=== PATIENT | female | born 1990 | race Caucasian/White ===

== ENCOUNTER 2016-04-27 19:41 | Outpatient (CLI) | payer MEDICAID ==
--- NOTE | 2016-04-27 20:01 | L&D Flow Sheet ---
LD Flowsheet Datetime Report Generated by CPN: 04/27/2016 20:00 Datetime: 04/27/2016 19:59 Vital Signs NBP Sys/Marly/Mean (mmHg): 138 (QS system process) : 86 (QS system process) : 105 (QS system process) Pulse: 83 (QS system process)
[2016-04-27 21:23] LABS: PARTIAL THROMBOPLASTIN TIME 30.9 SEC (23.5-35.8); PROTHROMBIN TIME 12.4 SEC (11.4-15.4)
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
[2016-04-27 22:12] LABS: APPEARANCE,URINE CLEAR; BILIRUBIN,URINE NEGATIVE (NEGATIVE); GLUCOSE, URINE NEGATIVE (NEGATIVE); KETONES,URINE NEGATIVE (NEGATIVE); LEUKOCYTE ESTERASE,URINE NEGATIVE (NEGATIVE); NITRITE,URINE NEGATIVE (NEGATIVE); PROTEIN,URINE NEGATIVE (NEGATIVE); URINE SPECIFIC GRAVITY 1.006; UROBILINOGEN,URINE NEGATIVE mg/dL (<2.0)
[2016-04-27 22:34] LABS: URINE BARBITURATES SCREEN NEGATIVE; URINE METHADONE SCREEN NEGATIVE; URINE OPIATES LOW NEGATIVE; URINE PHENCYCLIDINE SCREEN NEGATIVE
[2016-04-27 23:47] LABS: TOTAL RBC COUNT 2019; VOL OF FETOMATERNAL HEMORRHAGE 0 ML (0)
[2016-04-27 23:48] LABS: TYPE IN FILE? TYPE IN FILE
--- NOTE | 2016-04-28 04:46 | L&D General Admission ---
General Admit Datetime Report Generated by CPN: 04/28/2016 04:45 INFORMATION Patient Age: 25 (03/02/2016 19:34:QS system process) EDC: 08/03/2016 00:00 (04/27/2016 19:44:Cher Lattibeaudeir, RN) Para: 1 (04/28/2016 00:00:Noris Zaragoza) Baby, Number in Womb: 1 (04/28/2016 00:00:Noris Zaragoza) CARE Primary Prescriptionist: [facility] (04/27/2016 19:44:Noris Zaragoza) Height (in): 69 (04/27/2016 19:57:QS system process) Height (in): 65 (03/02/2016 19:34:QS system process) ALLERGIES Medication Allergies: codeine phosphate (08/06/2015); dextromethorphan HBr (08/06/2015); phenylpropanolamine HCl (08/06/2015); pseudoephedrine HCl (08/06/2015); brompheniramine maleate (08/06/2015); guaifenesin (08/06/2015) (03/02/2016 19:34:QS system process) Food Allergies: red dyes (04/27/2016 19:44:Noris Zaragoza) Environmental Allergies: seasonal allergies (04/27/2016 19:44:Noris Zaragoza) COMMUNICATION Primary Language: Panamanian (04/27/2016 19:44:Noris Zaragoza) Medical Tx Preferred Language: Panamanian (04/27/2016 19:44:Noris Zaragoza) DEMOGRAPHICS Address: [address] [place] [id number] (03/02/2016 19:34:QS system process) Zipcode: [address] (03/02/2016 19:34:QS system process) Home (03/02/2016 19:34:QS system process) SSN: [id number] (03/02/2016 19:34:QS system process) Next of Kin Name: MARLENA GOYAL (04/27/2016 19:41:QS system process) Next of Kin Name: MOE DIEHL (03/02/2016 19:34:QS system process) Next of Kin (04/27/2016 19:41:QS system process) Next of Kin (03/02/2016 19:34:QS system process) Next of Kin Relationship: SPO (04/27/2016 19:41:QS system process) Next of Kin Relationship: [place] (03/02/2016 19:34:QS system process) Date of : 1990 (03/02/2016 19:34:QS system process) Marital Status: (03/02/2016 19:34:QS system process) Sex: Female (03/02/2016 19:34:QS system process) Race: (03/02/2016 19:34:QS system process) Ethnicity: Non- or (03/02/2016 19:34:QS system process) Tenriism: None (03/02/2016 19:34:QS system process) DRUG AND ALCOHOL USE Alcohol: No (04/27/2016 19:44:Noris Zaragoza) Cigarettes: Never Smoker. [id number] (04/27/2016 19:44:Norsi Zaragoza) Marijuana: No (04/27/2016 19:44:Noris Zaragoza) Cocaine: No (04/27/2016 19:44:Noris Zaragoza) Other Illicit Drugs: No (04/27/2016 19:44:Noris Zaragoza) VACCINE HISTORY Influenza Vaccine: No (04/27/2016 19:44:Noris Zaragoza) Pneumococcal Vaccine: No (04/27/2016 19:44:Norsi Zaragoza) Tetanus Vaccine: No (04/27/2016 19:44:Noris Zaragoza) Tdap Vaccine: No (04/27/2016 19:44:Noris Zaragoza) Hepatitis B Vaccine: No (04/27/2016 19:44:Noris Zaragoza) Financial Service Professional: [facility] (04/27/2016 19:44:Noris Zaragoza) Feeding Preference: Both (04/27/2016 19:44:Noris Zaragoza) Circumcision: Yes (04/27/2016 19:44:Noris Zaragoza) Classes Attended: No (04/27/2016 19:44:Noris Zaragoza) Tubal Ligation: Yes (04/27/2016 19:44:Noris Zaragoza) Tubal Authorization Signed: N/A (04/27/2016 19:44:Noris Zaragoza) Consent: No (04/27/2016 19:44:Noris Zaragoza) Consent Signed: No (04/27/2016 19:44:Noris Zaragoza) Pain Management Plans: Epidural (04/27/2016 19:44:Noris Zaragoza) Plans for Labor and Delivery: None (04/27/2016 19:44:Noris Zaragoza) Support Person: Marlena (04/27/2016 19:44:Noris Zaragoza) Support Person Relationship: (04/27/2016 19:44:Noris Zaragoza) Cultural/Spritual Practice: N/A (04/27/2016 19:44:Noris Zaragoza) Spir/Cult Dietary Needs: N/A (04/27/2016 19:44:Noris Zaragoza) LIVING SITUATION/DISCHARGE PLAN Living Arrangements: House (04/27/2016 19:44:Noris Zaragoza) Adequate Access to:: Electric; Heat; Refrigeration; Plumbing/Running water; Phone; Transportation (04/27/2016 19:44:Noris Zaragoza) WIC Program: No (04/27/2016 19:44:Noris Zaragoza) Discharge Service Counselor Person: marlena- (04/27/2016 19:44:Noris Zaragoza) Person to Help after Discharge: marlena- (04/27/2016 19:44:Noris Zaragoza) Specify Current Resource Used: medicaid (04/27/2016 19:44:Noris Zaragoza) Car Seat for Discharge: Yes (04/27/2016 19:44:Noris Zaragoza) OB/PREVIOUS HISTORY Previous Procedures: Ultrasound; NST (04/27/2016 19:44:Noris Zaragoza) Current Procedures: Ultrasound (04/27/2016 19:44:Noris Zaragoza) History of Previous : No (04/27/2016 19:44:Noris Zaragoza) History of Gestational Diabetes: No (04/27/2016 19:44:Noris Zaragoza) History of PIH: No (04/27/2016 19:44:Noris Zaragoza) History of Incompetent Cervix: No (04/27/2016 19:44:Noris Zaragoza) History of Placenta Previa/Abrup: No (04/27/2016 19:44:Noris Zaragoza) History of Macrosomia: No (04/27/2016 19:44:Noris Zaragoza) History of IUGR: No (04/27/2016 19:44:Noris Zaragoza) History of Hemorrhage: No (04/27/2016 19:44:Noris Zaragoza) History of Loss/Stillborn: No (04/27/2016 19:44:Noris Zaragoza) History of : No (04/27/2016 19:44:Noris Zaragoza) History of D (Rh) Sensitization: No (04/27/2016 19:44:Noris Zaragoza) History Recurrent Loss/Stillborn: No (04/27/2016 19:44:Noris Zaragoza) History Depression/PP Depression: No (04/27/2016 19:44:Noris Zaragoza) History of Uterine Anomaly/INGRID: No (04/27/2016 19:44:Noris Zaragoza) History of Infertility: No (04/27/2016 19:44:Noris Zaragoza) History of ART Treatment: No (04/27/2016 19:44:Noris Zaragoza) History of INGRID: No (04/27/2016 19:44:Noris Zaragoza) Comments Obstetrical History: 1st - 2012-normal vaginal delivery with vacuum 2nd - current (04/27/2016 19:44:Noris Zaragoza) MEDICAL HISTORY Med Hx Diabetes: No (04/27/2016 19:44:Noris Zaragoza) Med Hx Hypertension: No (04/27/2016 19:44:Noris Zaragoza) Med Hx Heart Disease: No (04/27/2016 19:44:Noris Zaragoza) Med Hx Autoimmune Disorder: No (04/27/2016 19:44:Noris Zaragoza) Med Hx Kidney Disease/UTI: No (04/27/2016 19:44:Noris Zaragoza) Med Hx Neurologic/Epilepsy: No (04/27/2016 19:44:Noris Zaragoza) Med Hx Psychiatric Disorders: No (04/27/2016 19:44:Noris Zaragoza) Med Hx Hepatitis/Liver Disease: No (04/27/2016 19:44:Noris Zaragoza) Med Hx Varicosities/Phlebitis: No (04/27/2016 19:44:Noris Zaragoza) Med Hx Thyroid Dysfunction: No (04/27/2016 19:44:Noris Zaragoza) Med Hx Trauma/Violence: No (04/27/2016 19:44:Noris Zaragoza) Med Hx Blood Transfusion: No (04/27/2016 19:44:Noris Zaragoza) Med Hx Pulmonary (Asthma,TB): No (04/27/2016 19:44:Noris Zaragoza) Med Hx Breast: No (04/27/2016 19:44:Noris Zaragoza) Med Hx MICROBIOLOGY LABORATORY MANAGER Surgery: No (04/27/2016 19:44:Noris Zaragoza) Med Hx Hospitalization/Surgery: No (04/27/2016 19:44:Noris Zaragoza) Med Hx Anesthetic Complications: No (04/27/2016 19:44:Noris Zaragoza) Med Hx Abnormal Pap Smear: No (04/27/2016 19:44:Noris Zaragoza) Other Medical Diseases: No (04/27/2016 19:44:Noris Zaragoza) Med Hx Significant Family Hx: No (04/27/2016 19:44:Noris Zaragoza) Details of Med/Surg Hx: anxiety depression (04/27/2016 19:44:Noris Zaragoza) INFECTIOUS HISTORY Inf Hx Gonorrhea: No (04/27/2016 19:44:Noris Zaragoza) Inf Hx Chlamydia: No (04/27/2016 19:44:Noris Zaragoza) Inf Hx Syphilis: No (04/27/2016 19:44:Noris Zaragoza) Inf Hx HIV/AIDS: No (04/27/2016 19:44:Noris Zaragoza) Inf Hx Human Papilloma Virus: No (04/27/2016 19:44:Noris Zaragoza) Inf Hx Pt/Partner Genital Herpes: No (04/27/2016 19:44:Noris Zaragoza) Inf Hx Tuberculosis/Exposure: No (04/27/2016 19:44:Noris Zaragoza) Inf Hx Hepatitis B,C: No (04/27/2016 19:44:Noris Zaragoza) Inf Hx Rash or Viral Illness: No (04/27/2016 19:44:Noris Zaragoza) GENETIC HISTORY Gen Hx Age >=35 at ORVLILE: No (04/27/2016 19:44:Noris Zaragoza) Gen Hx Thalassemia: No (04/27/2016 19:44:Noris Zaragoza) Gen Hx Congenital Heart Defect: No (04/27/2016 19:44:Noris Zaragoza) Gen Hx Neural Tube Defect: No (04/27/2016 19:44:Noris Zaragoza) Gen Hx Down's Syndrome: No (04/27/2016 19:44:Noris Zaragoza) Gen Hx Devonte-Sachs: No (04/27/2016 19:44:Noris Zaragoza) Gen Hx Elijah: No (04/27/2016 19:44:Noris Zaragoza) Gen Hx Familial Dysautonomia: No (04/27/2016 19:44:Noris Zaragoza) Gen Hx Sickle Cell Disease/Trait: No (04/27/2016 19:44:Noris Zaragoza) Gen Hx Hemophilia/Blood Disorder: No (04/27/2016 19:44:Noris Zaragoza) Gen Hx Muscular Dystrophy: No (04/27/2016 19:44:Noris Zaragoza) Gen Hx Cystic Fibrosis: No (04/27/2016 19:44:Noris Zaragoza) Gen Hx Huntingtons Chorea: No (04/27/2016 19:44:Noris Zaragoza) Gen Hx Mental Retardation/Autism: No (04/27/2016 19:44:Noris Zaragoza) Gen Hx Tested for Fragile X: No (04/27/2016 19:44:Noris Zaragoza) Gen Hx Other Inher/Chromosomal: No (04/27/2016 19:44:Noris Zaragoza) Gen Hx Maternal Metabolic DO: No (04/27/2016 19:44:Noris Zaragoza) Gen Hx Pt Father or FOB Defect: No (04/27/2016 19:44:Noris Zaragoza) Gen Hx Other Genetic History: No (04/27/2016 19:44:Noris Zaragoza) Gen Hx Drugs/Meds since LMP: No (04/27/2016 19:44:Noris Zaragoza)
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
--- NOTE | 2016-04-28 04:46 | L&D Admission Assessment ---
LD ADM ASMT Datetime Report Generated by CPN: 04/28/2016 04:45 PATIENT ASSESSMENT Assessment Type: Triage (04/27/2016 20:03:Noris Zaragoza) WEIGHT Weight (lb): 266 (04/27/2016 19:57:QS system process) Weight (kg): 120.9 (04/27/2016 19:57:QS system process) BMI: 44.3 (04/27/2016 19:57:QS system process) PAIN Pain Scale: 1 (04/27/2016 23:00:Noris Zaragoza) Pain Scale: 1 (04/27/2016 21:30:Noris Zaragoza) Pain Scale: 2 (04/27/2016 20:03:Noris Zaragoza) Pain Presence: Constant (04/27/2016 23:00:Noris Zaragoza) Pain Presence: Constant (04/27/2016 21:30:Noris Zaragoza) Pain Presence: Constant (04/27/2016 20:03:Noris Zaragoza) Pain Type: Cramping (04/27/2016 23:00:Noris Zaragoza) Pain Type: Cramping (04/27/2016 21:30:Noris Zaragoza) Pain Type: Cramping (04/27/2016 20:03:Noris Zaragoza) Pain Location: Back (04/27/2016 23:00:Noris Zaragoza) Pain Location: Back (04/27/2016 21:30:Noris Zaragoza) Pain Location: Back (04/27/2016 20:03:Noris Zaragoza) Pain Goal: 0 (04/27/2016 23:00:Noris Zaragoza) Pain Goal: 0 (04/27/2016 21:30:Noris Zaragoza) Pain Goal: 0 (04/27/2016 20:03:Noris Zaragoza) Pain Related to Contraction: No (04/27/2016 20:03:Noris Zaragoza) CONTRACTIONS Frequency (min): none (04/27/2016 23:55:Noris Zaragoza) Frequency (min): none (04/27/2016 23:30:Noris Zaragoza) Frequency (min): none (04/27/2016 23:00:Noris Zaragoza) Frequency (min): none (04/27/2016 22:30:Noris Zaragoza) Frequency (min): none (04/27/2016 22:00:Noris Zaragoza) Frequency (min): none (04/27/2016 21:30:Noris Zaragoza) Frequency (min): none (04/27/2016 20:30:Noris Zaragoza) Resting Tone Marty: Relaxed (04/27/2016 23:55:Noris Zaragzoa) Resting Tone Marty: Relaxed (04/27/2016 23:30:Noris Zaragoza) Resting Tone Marty: Relaxed (04/27/2016 23:00:Noris Zaragoza) Resting Tone Marty: Relaxed (04/27/2016 22:30:Noris Zaragoza) Resting Tone Marty: Relaxed (04/27/2016 22:00:Noris Zaragoza) Resting Tone Marty: Relaxed (04/27/2016 21:30:Noris Zaragoza) Resting Tone Marty: Relaxed (04/27/2016 20:30:Noris Zaragoza) Contraction Comments: external monitor removed for discharge (04/27/2016 23:55:Noris Zaragoza) NEURO Level of Consciousness: Fully Conscious (04/27/2016 20:03:Noris Zaragoza) DTR's/Clonus: DTRs 2+; No Clonus (04/27/2016 20:03:Noris Zaragoza) Headache: Denies (04/27/2016 20:03:Noris Zaragoza) Dizziness: No (04/27/2016 20:03:Noris Zaragoza) Blurred Vision: No (04/27/2016 20:03:Noris Zaragoza) Extremity Numbness/Tingling : None (04/27/2016 20:03:Noris Zaragoza) Extremity Movement: Full Range of Motion (04/27/2016 20:03:Noris Zaragoza) CARDIOVASCULAR Heart Rhythm: Regular (04/27/2016 20:03:Noris Zaragoza) Nailbeds: [place] (04/27/2016 20:03:Noris Zaragoza) Capillary Refill: Less than 3 Seconds (04/27/2016 20:03:Noris Zaragoza) Lower Extremities Edema: Bilateral Lower Extremities (04/27/2016 20:03:Noris Zaragoza) Lower Extremities Edema Degree: 1+ (04/27/2016 20:03:Noris Zaragoza) Upper Extremities Edema: Bilateral Upper Extremities (04/27/2016 20:03:Noris Zaragoza) Upper Extremities Edema Degree: 1+ (04/27/2016 20:03:Noris Zaragoza) Facial Edema: None (04/27/2016 20:03:Noris Zaragoza) DVT RISK ASSESSMENT DVT Risk Age: Age less than 41 years (04/27/2016 20:03:Noris Zaragoza) DVT Risk BMI: BMI<31 (04/27/2016 20:03:Noris Zaragoza) DVT Risk Surgery: None Applicable (04/27/2016 20:03:Noris Zaragoza) DVT Risk Other: Women Only- or (<1 month) (04/27/2016 20:03:Noris Zaragoza) DVT Risk Total: 1 (04/27/2016 20:03:QS system process) DVT Risk Text: Low Risk (<10%) No specific measures, early ambulation (04/27/2016 20:03:QS system process) RESPIRATORY Respiratory Effort: Unlabored (04/27/2016 20:03:Noris Zaragoza) Breath Sounds, Left: Clear and Equal (04/27/2016 20:03:Noris Zaragoza) Breath Sounds, Right: Clear and Equal (04/27/2016 20:03:Noris Zaragoza) Cough Productivity: None (04/27/2016 20:03:Noris Zaragoza) GASTROINTESTINAL Nausea/Vomiting: Denies (04/27/2016 20:03:Noris Zaragoza) Bowel Sounds: Normoactive (04/27/2016 20:03:Noris Zaragoza) RUQ Epigastric Pain: Denies (04/27/2016 20:03:Noris Zaragoza) Bowel Patterns: Soft, Formed Stool (04/27/2016 20:03:Noris Zaragoza) Hemorrhoids: None (04/27/2016 20:03:Noris Zaragoza) Diet Type: Regular diet (04/27/2016 20:03:Noris Zaragoza) Last Meal: 04/27/2016 15:00 (04/27/2016 20:03:Noris Zaragoza) GENITOURINARY Bladder: Nondistended (04/27/2016 20:03:Noris Zaragoza) Frequency of Urination: No (04/27/2016 20:03:Noris Zaragoza) Urination Burning: No (04/27/2016 20:03:Noris Zaragoza) CVA Tenderness: No (04/27/2016 20:03:Noris Zaragoza) Vaginal Bleeding: None (04/27/2016 20:03:Noris Zaragoza) Vaginal Discharge Amount: None (04/27/2016 20:03:Noris Zaragoza) INTEGUMENTARY Skin Color: Normal for Race (04/27/2016 20:03:Noris Zaragoza) Skin Temperature: Warm (04/27/2016 20:03:Noris Zaragoza) Skin Moisture: Dry (04/27/2016 20:03:Noris Zaragoza) JOHN SKIN ASSESSMENT John Scale Sensory Perception: No Impairment- Responds to verbal commands. Has no sensory deficit which would limit ability to feel or voice pain or discomfort (04/27/2016 20:03:Norisaz Zaragoza) John Scale Moisture: Rarely Moist- Skin is usually dry. Linen only requires changing at routine intervals (04/27/2016 20:03:Noris Zaragoza) John Scale Activity: Walks Frequently- Walks outside the room at least twice a day and inside room at least every 2 hours during the day. (04/27/2016 20:03:[facility]) John Scale Mobility: No Limitations- Makes major and frequent changes in position without assistance (04/27/2016 20:03:Noris Zaragoza) John Scale Nutrition: Excellent- Eats most of every meal. Never refuses a meal. Usually eats a total of 4 or more servings of meat and dairy products. Occasionally eats between meals. Does not require supplementation (04/27/2016 20:03:Norisaz Zaragoza) John Scale Friction and Shear: No Apparent Problem- Moves in bed and in chair independently and has sufficient muscle strength to lift up completely during move. Maintains good position in bed or chair at all times (04/27/2016 20:03:Noris Zaragoza) John Scale Total: 23 (04/27/2016 20:03:QS system process) John Scale Risk: No Risk of Pressure Ulcer Noted at this Time (04/27/2016 20:03:QS system process) SUPPORT Family Support: Significant Other supportive, at bedside frequently (04/27/2016 20:03:Noris Zaragoza) Emotional State: Calm/Relaxed (04/27/2016 20:03:Noris Zaragoza) SAFETY Call Mcgovern Within Reach: Yes (04/27/2016 20:03:Noris Zaragoza) Side Rails Up: Yes (04/27/2016 20:03:Noris Zaragoza) Bed Wheels Locked: Yes (04/27/2016 20:03:Noris Zaragoza) Arm Bands Present: Yes (04/27/2016 20:03:Noris Zaragoza) Isolation: [place] (04/27/2016 20:03:Noris Zaragoza) FALL SCREEN Fall Risk History of Falling: (0) No (04/27/2016 20:03:Noris Zaragoza) Fall Risk Secondary Diagnosis: (0) No (04/27/2016 20:03:Noris Zaragoza) Fall Risk Ambulatory Aid: (0) None/Bedrest/Wheelchair/Nurse Assist (04/27/2016 20:03:Noris Zaragoza) Fall Risk IV Therapy: (20) Yes (04/27/2016 20:03:Noris Zaragoza) Fall Risk Gait: (0) Normal/Bedrest/Immobile (04/27/2016 20:03:Noris Zaragoza) Fall Risk Mental Status: (0) Oriented to Own Ability (04/27/2016 20:03:Noris Zaragoza) Fall Risk Score: 20 (04/27/2016 20:03:QS system process) Fall Risk Score Definition: No Risk: No action required (04/27/2016 20:03:QS system process) RECENT TRAVEL/INFECTIOUS DISEASE Recent Exp Communicable Disease: No (04/27/2016 20:03:Noris Zaragoza) Cough or Fever: No (04/27/2016 20:03:Noris Zaragoza) Foreign Travel Past 10 Days: No (04/27/2016 20:03:Noris Zaragoza) Open Wounds or Sores: No (04/27/2016 20:03:Noris Zaragoza) Prior Antibiotic Resistance Tx: No (04/27/2016 20:03:Noris Zaragoza) BABY A FHR Baseline Rate (bpm) Baby A: 160 (04/27/2016 19:58:Noris Zaragoza)
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
== END 2016-04-28 00:04 | disposition home or self-care (01) ==
LOC: LC 19:41
PROVIDERS: ATTEND Student in an Organized Health Care Education/Training Program
PROC: 4A1HXCZ Monitoring of Products of Conception, Cardiac Rate, External Approach (ICD-10-PCS; principal; 2016-04-27)
DX: Z36 Encounter for antenatal screening of mother (principal); Z3A.26 26 weeks gestation of pregnancy
CPT/HCPCS: 36415; 76815; 80307; 81001; 85460; 85610; 85730

== ENCOUNTER 2016-07-29 14:35 | Outpatient (CLI) | payer MEDICAID ==
--- NOTE | 2016-07-29 15:59 | Non Stress Test Report ---
Non Stress Test Datetime Report Generated by CPN: 07/29/2016 15:59 DEMOGRAPHIC EGA NST: 39.2 INDICATION Indication for Study: Ordered by Provider MONITORING Monitor Explained: Monitor Explained; Test Explained; Patient Verbalized Understanding Time on Monitor: 07/29/2016 14:48 Time off Monitor: 07/29/2016 15:56 NST Duration: 68 NST INTERVENTIONS NST Interventions: PO Hydration; Reposition Patient Physician Notified NST: Dr. Neilsen BABY A: [id number] BABY A Movement : Present Contraction Frequency : none FHR Baseline : 140 Accelerations : 15X15 Decelerations : None Variability : Moderate 6-25bpm NST Review: Meets Criteria for Reactive NST NST Review and Verified By : Michael Spann RN NST Results: Reactive NST REPORT Report Trigger: Send Report
== END 2016-07-29 16:00 | disposition home or self-care (01) ==
LOC: LC 14:35
PROVIDERS: ATTEND Specialist
PROC: 4A1HXCZ Monitoring of Products of Conception, Cardiac Rate, External Approach (ICD-10-PCS; principal; 2016-07-29)
DX: O47.1 False labor at or after 37 completed weeks of gestation (principal); Z3A.39 39 weeks gestation of pregnancy
CPT/HCPCS: 59025

== ENCOUNTER 2016-08-09 00:38 | Inpatient (IN) | payer MEDICAID ==
[2016-08-09 01:08] LABS: APPEARANCE,URINE CLOUDY; BILIRUBIN,URINE NEGATIVE (NEGATIVE); GLUCOSE, URINE 50 mg/dL (NEGATIVE); KETONES,URINE NEGATIVE (NEGATIVE); LEUKOCYTE ESTERASE,URINE SMALL (NEGATIVE); NITRITE,URINE NEGATIVE (NEGATIVE); PROTEIN,URINE 30 mg/dL (NEGATIVE); URINE SPECIFIC GRAVITY 1.015; UROBILINOGEN,URINE NEGATIVE mg/dL (<2.0)
[2016-08-09 01:18] LABS: AMNISURE (ROM) NEGATIVE (NEGATIVE)
[2016-08-09] MEDS ORDERED: HYDROXYZINE PAMOATE 50 MG CAPSULE PO ONE (02:13)
[2016-08-09] MEDS ORDERED: HYDROXYZINE PAMOATE 50 MG CAPSULE ONE (02:14)
[2016-08-09 02:25] LABS: URINE BARBITURATES SCREEN NEGATIVE; URINE METHADONE SCREEN NEGATIVE; URINE OPIATES LOW NEGATIVE; URINE PHENCYCLIDINE SCREEN NEGATIVE
[2016-08-09] MEDS ORDERED: OXYTOCIN/NORMAL SALINE 1,000 ML IV PRN ×2 (03:16→14:40)
[2016-08-09 03:36] LABS: ABSOLUTE LYMPHOCYTES (AUTO) 2.9 10^3/uL (0.5-4.7); ABSOLUTE NEUT (AUTO) 10.8 10^3/uL (1.7-8.2); BASOPHILS % (AUTO) 0.3 % (0-2); EOSINOPHILS % (AUTO) 0.2 % (0-6); HEMOGLOBIN 11.3 g/dL (12.0-15.5); HGB HCT DIFFERENCE -0.1; LYMPHOCYTES % (AUTO) 19.5 % (13-45); MEAN CORPUSCULAR HEMOGLOBIN 26.7 pg (27.0-33.4); MEAN CORPUSCULAR HGB CONC 33.3 g/dL (32.0-36.0); MEAN CORPUSCULAR VOLUME 80 fl (80-97); MONOCYTES % (AUTO) 6.7 % (3-13); RED BLOOD COUNT 4.23 10^6/uL (3.72-5.28); SEGMENTED NEUTROPHILS % (AUTO) 73.3 % (42-78); WHITE BLOOD COUNT 14.7 10^3/uL (4.0-10.5)
[2016-08-09] MEDS: RINGERS SOLUTION,LACTATED 1,000 ML IV PRN ×3 (07:34→12:25)
[2016-08-09] MEDS ORDERED: FENTANYL/BUPIVACAINE/NS/PF 100 ML EPI PRN (08:19)
[2016-08-09] MEDS ORDERED: BENZOIN/ALOE VERA/STORAX/TOLU TINCTURE 60 ML TP PRN (08:19)
[2016-08-09] MEDS ORDERED: BUPIVACAINE HCL 0.25 % INJ/PF (2.5 MG/1 ML) 30 ML VIAL INFIL PRN (08:19)
[2016-08-09] MEDS ORDERED: EPHEDRINE SULFATE INJ 50 MG/1 ML AMPULE IV PRN (08:19)
[2016-08-09] MEDS ORDERED: FENTANYL/BUPIVACAINE/NS/PF 200 MCG/100 ML RTUINJ EPI ONE (08:27)
[2016-08-09] MEDS ORDERED: BUPIVACAINE HCL 0.25 % INJ/PF (2.5 MG/1 ML) 30 ML VIAL ONE (08:27)
[2016-08-09] MEDS ORDERED: EPHEDRINE SULFATE INJ 50 MG/1 ML AMPULE ONE (08:27)
[2016-08-09] MEDS ORDERED: MISOPROSTOL 0.2 MG TABLET PR PRN (09:53)
[2016-08-09] MEDS ORDERED: LIDOCAINE 1% INJ-PF (10 MG/ML) 30 ML SDV ONE (14:25)
[2016-08-09] MEDS ORDERED: MISOPROSTOL 0.2 MG TABLET ONE (14:30)
[2016-08-09] MEDS ORDERED: MEASLES,MUMPS&RUBELLA VACC/PF 0.5 ML VIAL SUBCUT PRN (14:40)
[2016-08-09] MEDS ORDERED: DIPH/PERTUSS(ACELL)/TETANUS VAC/PF 0.5 ML SYR (>=10YO) IM PRN (14:40)
[2016-08-09] MEDS ORDERED: GLYCERIN/WITCH HAZEL LEAF 1 EACH MED..PAD TP PRN (14:40)
[2016-08-09] MEDS ORDERED: ACETAMINOPHEN 650 MG SUPP.RECT PR PRN (14:40)
[2016-08-09] MEDS ORDERED: ZOLPIDEM TARTRATE 5 MG TABLET PO PRN (14:40)
[2016-08-09] MEDS ORDERED: DIBUCAINE 1% OINTMENT 28 GM TP PRN (14:40)
[2016-08-09] MEDS ORDERED: PROMETHAZINE HCL 25 MG TABLET PO PRN (14:40)
[2016-08-09] MEDS ORDERED: PROMETHAZINE HCL 25 MG SUPP.RECT PR PRN (14:40)
[2016-08-09] MEDS ORDERED: ACETAMINOPHEN WITH CODEINE #3 TABLET PO PRN (14:40)
[2016-08-09] MEDS ORDERED: NA PHOS,M-B/NA PHOS,DI-BA (ADULT) 133 ML ENEMA PR PRN (14:40)
[2016-08-09] MEDS ORDERED: MAGNESIUM HYDROXIDE SUSP 30 ML UDCUP PO PRN (14:40)
[2016-08-09] MEDS ORDERED: BENZOCAINE/MENTHOL AEROSOL SPRAY 56 ML TOP PRN (14:40)
[2016-08-09] MEDS ORDERED: PROMETHAZINE HCL INJ 25 MG/1 ML VIAL IV PRN (14:40)
[2016-08-09] MEDS ORDERED: PSEUDOEPHEDRINE HCL 30 MG TABLET PO PRN (14:40)
[2016-08-09] MEDS ORDERED: DIPHENHYDRAMINE HCL 25 MG CAPSULE PO PRN (14:40)
[2016-08-09] MEDS ORDERED: IBUPROFEN 800 MG TABLET ONE (14:56)
--- NOTE | 2016-08-09 16:53 | Admission Physical ---
Datetime Report Generated by CPN: 08/09/2016 16:53 CURRENT ADMISSION Chief Complaint: Suspected Ruptured Membranes Indication for Induction: PROM Admit Plan: Admit to Unit; Initiate Labor Induction Protocol ALLERGIES Medication Allergies: Yes Medication Allergies: dextromethorphan HBr (08/06/2015); phenylpropanolamine HCl (08/06/2015); pseudoephedrine HCl (08/06/2015); brompheniramine maleate (08/06/2015); guaifenesin (08/06/2015) Medication Allergies: codeine phosphate (08/06/2015); dextromethorphan HBr (08/06/2015); phenylpropanolamine HCl (08/06/2015); pseudoephedrine HCl (08/06/2015); brompheniramine maleate (08/06/2015); guaifenesin (08/06/2015) Latex: No Latex Allergies Food Allergies: red dyes Environmental Allergies: seasonal allergies OBSTETRICAL HISTORY EDC: 08/03/2016 00:00 : 2 Para: 1 Term: 1 : 0 SAB: 0 IAB: 0 Ectopic: 0 Livin Cesareans: 0 VBACs: 0 Multiple Births: 0 Gestational Diabetes: No Rh Sensitization: No Incompetent Cervix: No INGRID: No Infertility: No ART Treatment: No Uterine Anomaly: No IUGR: No Hx Previous C/S: No Macrosomia: No Hx Loss/Stillborn: No PIH: No Hx : No Placenta Previa/Abruption: No Depression/PP Depression: No PTL/PROM: No Post Hemorrhage: No Current Procedures: Ultrasound Obstetrical History Comments: 1st - 2012-normal vaginal delivery with vacuum 2nd - current SEE RECORDS Alcohol: No Marijuana : No Cocaine: No Other Illicit Drugs: No Cigarettes: Never Smoker. [id number] MEDICAL HISTORY Diabetes: No Blood Transfusion: No Pulmonary Disease (Asthma, TB): No Breast Disease: No Hypertension: No Harvest Manager Surgery: No Heart Disease: No Hosp/Surgery: No Autoimmune Disorder: No Anesthetic Complications: No Kidney Disease: No Abnormal Pap Smear: No Neuro/Epilepsy: No Psychiatric Disorders: No Other Medical Diseases: No Hepatitis/Liver Disease: No Significant Family History: No Varicosities/Phlebitis: No Trauma/Violence : No Thyroid Dysfunction: No Medical History Comments: anxiety depression INFECTIOUS HISTORY Gonorrhea: No Genital Herpes: No Chlamydia: No Tuberculosis: No Syphilis: No Hepatitis: No HIV/AIDS Exposure: No Rash or Viral Illness: No HPV: No PHYSICAL EXAM General: Normal HEENT: Normal Neurologic: Normal Thyroid: Normal Heart: Normal Lungs: Normal Breast: Deferred Back: Normal Abdomen: Normal Genitourinary Exam: Normal Extremities: Normal DTRs: Normal Pelvic Type: Adequate Vital Signs: Reviewed VAGINAL EXAM Dilatation: 3 Effacement: 50 Station: -2 MEMBRANES Pooling: Positive Membranes: Ruptured FETUS A EGA: 40.6 Monitoring: External US FHR- Baseline: 140 Decelerations: None Presentation: Vertex PLANS FOR LABOR AND DELIVERY Labor and Delivery: None Pain Management: Epidural Feeding Preference: Both Benefit of Breast Feed Discussed: Yes Circumcision: Yes INFORMED CONSENT Signature: with User ID: [email or web address]
[2016-08-09] MEDS: FERROUS SULFATE 325 MG TABLET PO SCH (17:34)
[2016-08-09] MEDS: DOCUSATE SODIUM 100 MG CAPSULE PO SCH (17:34)
[2016-08-09] MEDS: ACETAMINOPHEN WITH CODEINE #3 TABLET PO PRN (19:51)
[2016-08-09] MEDS: IBUPROFEN 800 MG TABLET PO SCH (21:26)
[2016-08-09] MEDS: FAMOTIDINE 20 MG TABLET PO SCH (21:26)
[2016-08-09] MEDS ORDERED: SERTRALINE HCL 50 MG TABLET PO SCH (22:00)
[2016-08-10] MEDS: ACETAMINOPHEN WITH CODEINE #3 TABLET PO PRN ×3 (04:09→20:04)
[2016-08-10] MEDS: IBUPROFEN 800 MG TABLET PO SCH ×2 (05:59→21:14)
[2016-08-10 07:49] LABS: HEMATOCRIT 28.8 % (36.0-47.0); HEMOGLOBIN 9.3 g/dL (12.0-15.5); HGB HCT DIFFERENCE -0.9; MEAN CORPUSCULAR HEMOGLOBIN 26.7 pg (27.0-33.4); MEAN CORPUSCULAR HGB CONC 32.3 g/dL (32.0-36.0); MEAN CORPUSCULAR VOLUME 83 fl (80-97); RED BLOOD COUNT 3.48 10^6/uL (3.72-5.28); RED CELL DISTRIBUTION WIDTH 17.7 % (11.5-14.0); WHITE BLOOD COUNT 14.8 10^3/uL (4.0-10.5)
[2016-08-10] MEDS: FAMOTIDINE 20 MG TABLET PO SCH ×2 (09:25→21:14)
[2016-08-10] MEDS: FERROUS SULFATE 325 MG TABLET PO SCH ×2 (09:25→18:06)
[2016-08-10] MEDS: DOCUSATE SODIUM 100 MG CAPSULE PO SCH ×2 (09:26→18:06)
[2016-08-10] MEDS ORDERED: PRENATAL VITAMIN W-O CA NO5/FE FUMARATE/FA CAPSULE PO SCH (10:00)
[2016-08-10] MEDS ORDERED: SENNOSIDES/DOCUSATE 8.6-50 MG 1 EACH TABLET PO SCH (10:00)
--- NOTE | 2016-08-10 10:14 | PDOC PROGRESS REPORT ---
Subjective-OB Subjective: Post Delivery Day: 1 25 year old. Denies any needs at this time, states lochia is stable, pain well controlled, voiding without difficulty. Physical Exam (OB) Vital Signs: Temp Pulse Resp BP Pulse Ox 97.7 F 82 16 123/78 100 08/10/16 08:15 08/10/16 08:15 08/10/16 08:15 08/10/16 08:15 08/10/16 08:15 Intake & Output 08/09/16 08/10/16 08/11/16 06:59 06:59 06:59 Output Total 500 Balance -500 Weight 130.5 kg - PIH/Pre-Eclampsia DTR's: 2 + Clonus: Negative Headache: Absent Epigastric Pain: No Visual Changes: No - Lochia Lochia Amount: Small 10-25 ml Lochia Color: Rubra/Red - Abdomen Description: Soft Hernia Present: No Fundal Description: Firm Fundal Height: u/u - u/2 Objective-Diagnostic Laboratory: 08/10/16 06:55 08/10/16 06:55 WBC 14.8 H RBC 3.48 L Hgb 9.3 L Hct 28.8 L MCV 83 MCH 26.7 L MCHC 32.3 RDW 17.7 H Plt Count 240 Assessment and Plan(PN) - Assessment and Plan (1) Vaginal delivery Is this a current diagnosis for this admission?: YesPlan: routine pp care (2) Acute blood loss anemia Is this a current diagnosis for this admission?: YesPlan: ferrous sulfate increase dietary iron - Time Spent with Patient Time with patient: Less than 15 minutes Critical Time spent with patient: Less than 15 minutes Medications reviewed and adjusted accordingly: Yes - Disposition Anticipated Discharge: Home Within: within 24 hours
--- NOTE | 2016-08-10 10:48 | Delivery Summary ---
Del Sum A-C Datetime Report Generated by CPN: 08/10/2016 10:47 DELIVERY PERSONNEL DELIVERY PERSONNEL: [phone] DELIVERY PERSONNEL: [phone] Delivery Doctor:: Chance Waldrop MD Labor and Delivery Nurse:: Tania Montaño RNlead radiation therapist Nurse:: Yahaira Santoyo RN Switch Foreman:: Shayy Duong RN Automobile Repossessor/AWNING HANGER SUPERVISOR: Nabil Colmenares, MOTORCYCLE MECHANIC MATERNAL INFORMATION Delivery Anesthesia: Epidural Medications After Delivery: Pitocin Bolus-Please Comment Meds After Delivery Comment: Pitocin 20 units in 1000 mL NS Estimated Blood Loss (ml): 250 Maternal Complications: Premature Rupture of Membranes LABOR SUMMARY EDC: 08/03/2016 00:00 No. Babies in Womb: 1 LABOR INFORMATION Reason for Induction: Premature Rupture of Membranes Onset of Labor: 08/09/2016 08:00 Complete Dilatation: 08/09/2016 12:16 Oxytocin: Augmentation Group B Beta Strep: negative Antibiotics # of Doses: 0 Steroids Given: None Reason Steroids Not Administered: Not Applicable MEMBRANES Membranes Rupture Method: Spontaneous Rupture of Membranes: 08/08/2016 23:55 Length of Rupture (hr): 14.42 Amniotic Fluid Color: Particulate Meconium Amniotic Fluid Amount: Moderate Amniotic Fluid Odor: Normal STAGES OF LABOR Stage 1 hr: 4 Stage 1 min: 16 Stage 2 hr: 2 Stage 2 min: 4 Stage 3 hr: 0 Stage 3 min: 6 Total Time in Labor hr: 6 Total Time in Labor min: 26 VAGINAL DELIVERY Episiotomy: None Laceration Extension: Second Degree Laceration Type: Perineal Laceration Repair Note: small second degree repaired with 2-0 chromic suture. Sponge Count Correct: Yes; Vaginal Sweep Performed Sharps Count Correct: Yes CSECTION DELIVERY Primary Indication: N/A Secondary Indication: N/A CSection Urgency: N/A CSection Incidence: N/A Labor: N/A Elective: N/A CSection Incision: N/A BABY A INFORMATION Delivery Date/Time: 08/09/2016 14:20 Method of Delivery: Vaginal Born in Route : No : N/A Forceps: N/A Vacuum Extraction: N/A Shoulder Dystocia : Yes SHOULDER DYSTOCIA BABY A Delivery of Head: 08/09/2016 14:20 Time Head to Delivery : 0.0 1st Intervention to Resolve: McRobert's Maneuver 2nd Intervention to Resolve: Suprapubic Pressure Verify NO Fundal Pressure: No Fundal Pressure Applied Arm Under Symphisis at Del: Left Shoulder Dystocia Comments: 48sec from delivery of head to shoulder PRESENTATION/POSITION BABY A Presentation: Cephalic Cephalic Presentation: Vertex Vertex Position: Right Occipital Anterior Breech Presentation: N/A PLACENTA INFORMATION BABY A Placenta Delivery Time : 08/09/2016 14:26 Placenta Method of Delivery: Spontaneous Placenta Status: Delivered SCORES BABY A Heart Rate 1 min: >100 bpm Resp Effort 1 min: Good Cry Reflex Irritability 1 min: Cough or Sneeze or Pulls Away Muscle Tone 1 min: Some Flexion of Extremities Color 1 min: Blue/Pale Resuscitation Effort 1 min: Tactile Stimulation SCORE 1 MIN: 7 Heart Rate 5 min: >100 bpm Resp Effort 5 min: Good Cry Reflex Irritability 5 min: Cough or Sneeze or Pulls Away Muscle Tone 5 min: Some Flexion of Extremities Color 5 min: Body [place], Extremities Blue Resuscitation Effort 5 min: Tactile Stimulation SCORE 5 MIN: 8 INFORMATION BABY A Gestational Age at Delivery: 40.6 Gestational Status: Full Term- 39- 40.6 Weeks Outcome : Liveborn Condition : Stable Infant Sex: Male IDENTIFICATION BABY A Verification Date/Time: 08/09/2016 14:33 ID Band Number: [id number] Mother's Name Verified: Yes Infant RN Verifying : Michael Montaño RN Additional Verifying Personnel: H. Natanael RN WEIGHT/LENGTH BABY A Birthweight (gm): 4000 Infant Weight (lb): 8 Weight (oz): 13 CORD INFORMATION BABY A No. Cord Vessels: 3 Nuchal Cord : N/A Cord Blood Taken: Yes-For Eval (Mom's Blood Type - or O+) Infant Suction: Mouth; Nose ASSESSMENT BABY A Complications: Multiple Variable Decels; Meconium; Shoulder Dystocia Physical Findings at Delivery: Caput Succedaneum Respirations: Appears Normal Skin to Skin: Yes Skin to Skin Time (min): 60 Aboriginal Education Teacher/ALS Called : No Care By: Shabana Duong RN Transferred To: Remains with Mother BABY B INFORMATION : N/A SIGNATURES Signature: with User ID: [email or web address]
[2016-08-10] MEDS ORDERED: ACETAMINOPHEN WITH CODEINE #3 TABLET PO PRN (13:20)
[2016-08-10] MEDS ORDERED: DIBUCAINE 1% OINTMENT 28 GM TP PRN (13:20)
[2016-08-10] MEDS ORDERED: ACETAMINOPHEN 650 MG SUPP.RECT PR PRN (13:20)
[2016-08-10] MEDS ORDERED: DIPH/PERTUSS(ACELL)/TETANUS VAC/PF 0.5 ML SYR (>=10YO) IM PRN (13:21)
[2016-08-10] MEDS ORDERED: DIPHENHYDRAMINE HCL 25 MG CAPSULE PO PRN (13:21)
[2016-08-10] MEDS ORDERED: MAGNESIUM HYDROXIDE SUSP 30 ML UDCUP PO PRN (13:22)
[2016-08-10] MEDS ORDERED: GLYCERIN/WITCH HAZEL LEAF 1 EACH MED..PAD TP PRN (13:22)
[2016-08-10] MEDS ORDERED: NA PHOS,M-B/NA PHOS,DI-BA (ADULT) 133 ML ENEMA PR PRN (13:22)
[2016-08-10] MEDS ORDERED: PROMETHAZINE HCL 25 MG SUPP.RECT PR PRN (13:23)
[2016-08-10] MEDS ORDERED: PROMETHAZINE HCL 25 MG TABLET PO PRN (13:23)
[2016-08-10] MEDS ORDERED: BENZOCAINE/MENTHOL AEROSOL SPRAY 56 ML TOP PRN (13:24)
[2016-08-10] MEDS ORDERED: PROMETHAZINE HCL INJ 25 MG/1 ML VIAL IV PRN (13:24)
[2016-08-10] MEDS ORDERED: ZOLPIDEM TARTRATE 5 MG TABLET PO PRN (13:24)
[2016-08-10] MEDS ORDERED: SERTRALINE HCL 50 MG TABLET PO SCH (22:00)
[2016-08-11] MEDS: IBUPROFEN 800 MG TABLET PO SCH (05:54)
[2016-08-11] MEDS: FERROUS SULFATE 325 MG TABLET PO SCH (09:35)
[2016-08-11] MEDS: DOCUSATE SODIUM 100 MG CAPSULE PO SCH (09:35)
[2016-08-11] MEDS: FAMOTIDINE 20 MG TABLET PO SCH (09:36)
[2016-08-11] MEDS ORDERED: SENNOSIDES/DOCUSATE 8.6-50 MG 1 EACH TABLET PO SCH (10:00)
[2016-08-11] MEDS ORDERED: PRENATAL VITAMIN W-O CA NO5/FE FUMARATE/FA CAPSULE PO SCH (10:00)
--- NOTE | 2016-08-11 10:06 | PDOC PROGRESS REPORT ---
Subjective-OB Subjective: Post Delivery Day: 26 year old. Denies any needs at this time. Ready to go home. Physical Exam (OB) Vital Signs: Temp Pulse Resp BP Pulse Ox 97.9 F 74 16 124/64 97 08/11/16 07:35 08/11/16 07:35 08/11/16 07:35 08/11/16 07:35 08/11/16 07:35 Intake & Output 08/10/16 08/11/16 08/12/16 06:59 06:59 06:59 Intake Total 250 Output Total 500 Balance -500 250 - PIH/Pre-Eclampsia DTR's: 2 + Clonus: Negative Headache: Absent Epigastric Pain: No Visual Changes: No - Lochia Lochia Amount: Scant < 10 ml Lochia Color: Rubra/Red - Abdomen Description: Soft, Round Hernia Present: No Bowel Sounds: Normoactive Flatus Presence: Present Stool: Yes Fundal Description: Firm, Midline Fundal Height: u/u - u/2 Objective-Diagnostic Laboratory: 08/10/16 06:55 Assessment and Plan(PN) - Time Spent with Patient Medications reviewed and adjusted accordingly: Yes - Disposition Anticipated Discharge: Home
--- NOTE | 2016-08-11 10:12 | PDOC DISCHARGE SUMMARY ---
Final Diagnosis Discharge Date: 08/11/16 - Final Diagnosis (1) Acute blood loss anemia Is this a current diagnosis for this admission?: Yes (2) History of anxiety Is this a current diagnosis for this admission?: Yes (3) Is this a current diagnosis for this admission?: Yes (4) Vaginal delivery Is this a current diagnosis for this admission?: Yes Discharge Data - Discharge Medication Home Medications: Hydroxyzine Pamoate [Vistaril 25 mg Capsule] 1 tab PO PRN PRN 04/27/16 Sertraline HCl [Zoloft 50 mg Tablet] 1 tab PO DAILY 04/27/16 Iron,Carbonyl/Vit C/Vit B12/FA [Iron 100 Plus Tablet] 325 mg PO BID 07/29/16 Vit/Iron Fumarate/FA [ Tablet] 1 tab PO DAILY #0 tablet Gestational Age: 40.6 wks Reason(s) for Admission: PROM Procedures: Ultrasound Intrapartum Procedure(s): Spontaneous Vaginal Delivery Complication(s): Laceration-Perineal Laceration-Degree: 2nd - Data Baby 1 Male at 1 minute: 7 at 5 minutes: 8 Weight: 3.997 kg Home with Mother: Yes Complications: No - Diagnosis Test Laboratory: Temp Pulse Resp BP Pulse Ox 97.9 F 74 16 124/64 97 08/11/16 07:35 08/11/16 07:35 08/11/16 07:35 08/11/16 07:35 08/11/16 07:35 08/09/16 08/09/16 08/10/16 00:48 03:27 06:55 RBC 4.23 3.48 L Hgb 11.3 L 9.3 L Hct 34.0 L 28.8 L Urine Opiates Screen NEGATIVE - Discharge information/Instructions Discharge Activity: Activity As Tolerated, Balance Activity w/Rest, Pelvic Rest , Slowly Increase Activity, No tub bath Discharge Diet: Regular Disposition: HOME, SELF-CARE Follow up with: [facility] in: 4, Weeks
[2016-08-11 10:54] VITALS: BP 128/66
== END 2016-08-11 13:15 | disposition home or self-care (01) | DRG 775 ==
LOC: LC 00:38 → LR 03:24 → 2S 16:52 → UNDODISIN 08-10 11:37
PROVIDERS: ADMIT Obstetrics & Gynecology; ATTEND Obstetrics & Gynecology
PROC: 10E0XZZ Delivery of Products of Conception, External Approach (ICD-10-PCS; principal; 2016-08-09)
PROC: 0KQM0ZZ Repair Perineum Muscle, Open Approach (ICD-10-PCS; 2016-08-09)
PROC: 4A1HXCZ Monitoring of Products of Conception, Cardiac Rate, External Approach (ICD-10-PCS; 2016-08-09)
DX: O42.02 Full-term premature rupture of membranes, onset of labor within 24 hours of rupture (principal); D62 Acute posthemorrhagic anemia; O99.02 Anemia complicating childbirth; O99.344 Other mental disorders complicating childbirth; F41.9 Anxiety disorder, unspecified; O70.1 Second degree perineal laceration during delivery; F32.9 Major depressive disorder, single episode, unspecified; O77.0 Labor and delivery complicated by meconium in amniotic fluid; O76 Abnormality in fetal heart rate and rhythm complicating labor and delivery; Z91.048 Other nonmedicinal substance allergy status; Z88.8 Allergy status to other drugs, medicaments and biological substances; Z3A.40 40 weeks gestation of pregnancy; Z37.0 Single live birth
CPT/HCPCS: 36415; 80307; 81005; 84112; 85025; 85027; 86592; 86850; 86900; 86901; J3490; Q0114

== ENCOUNTER 2016-11-05 08:43 | Day surgery (SDC) | payer MEDICAID ==
[2016-10-30 10:01] LABS: HEMATOCRIT 36.6 % (36.0-47.0); HEMOGLOBIN 12.3 g/dL (12.0-15.5); HGB HCT DIFFERENCE 0.3; MEAN CORPUSCULAR HGB CONC 33.6 g/dL (32.0-36.0); MEAN CORPUSCULAR VOLUME 83 fl (80-97); RED BLOOD COUNT 4.39 10^6/uL (3.72-5.28); RED CELL DISTRIBUTION WIDTH 15.2 % (11.5-14.0); WHITE BLOOD COUNT 9.8 10^3/uL (4.0-10.5)
[2016-10-30 10:13] LABS: APPEARANCE,URINE CLEAR; BILIRUBIN,URINE NEGATIVE (NEGATIVE); GLUCOSE, URINE NEGATIVE (NEGATIVE); KETONES,URINE NEGATIVE (NEGATIVE); LEUKOCYTE ESTERASE,URINE NEGATIVE (NEGATIVE); NITRITE,URINE NEGATIVE (NEGATIVE); PROTEIN,URINE NEGATIVE (NEGATIVE); UROBILINOGEN,URINE NEGATIVE mg/dL (<2.0)
[~2016-11-05 08:43] MED LIST: LACTATED RINGERS 1000 ML IV PRN; LIDOCAINE 0.5% INJ-PF (5 MG/ML) 50 ML SDV SUBCUT PRN
[2016-11-05] MEDS ORDERED: LIDOCAINE 2% INJ-PF (20 MG/ML) 10 ML AMPUL ONE (10:17)
[2016-11-05] MEDS ORDERED: FENTANYL CITRATE INJ/PF 100 MCG/2 ML AMPUL ONE (10:17)
[2016-11-05] MEDS ORDERED: MIDAZOLAM 2 MG/2 ML INJ ONE (10:17)
[2016-11-05] MEDS ORDERED: ONDANSETRON HCL INJ/PF 4 MG/2 ML SDV ONE ×2 (10:18→13:50)
[2016-11-05] MEDS ORDERED: ACETAMINOPHEN 100 ML IV ONE (10:18)
[2016-11-05] MEDS ORDERED: DEXAMETHASONE SOD PHOSPHATE INJ 4 MG/1 ML VIAL ONE (10:18)
[2016-11-05] MEDS ORDERED: PROPOFOL INJ 200 MG/20 ML VIAL IV ONE (10:18)
[2016-11-05] MEDS ORDERED: DIPHENHYDRAMINE HCL 50 MG/ML VIAL IV PRN (11:00)
[2016-11-05] MEDS ORDERED: MEPERIDINE HCL/PF INJ 25 MG/1 ML DISP.SYRIN IV PRN (11:00)
[2016-11-05] MEDS ORDERED: MORPHINE SULFATE 10 MG/ML INJ IV PRN (11:00)
[2016-11-05] MEDS ORDERED: PROMETHAZINE HCL INJ 25 MG/1 ML VIAL IV PRN ×2 (11:00)
[2016-11-05] MEDS ORDERED: OXYCODONE-ACETAMINOPHEN 5-325 MG TABLET PO PRN ×4 (11:00→11:53)
[2016-11-05] MEDS ORDERED: FENTANYL CITRATE INJ/PF 100 MCG/2 ML AMPUL IV PRN ×3 (11:00)
[2016-11-05] MEDS ORDERED: ONDANSETRON HCL INJ/PF 4 MG/2 ML SDV IV PRN (11:00)
--- NOTE | 2016-11-05 11:30 | Operative Report ---
Operative Report DATE OF SURGERY: 11/05/16 PREOPERATIVE DIAGNOSIS: Desires tubal ligation POSTOPERATIVE DIAGNOSIS: Same OPERATION: Laparoscopic tubal ligation with bipolar cautery SURGEON: ARNULFO LIM ANESTHESIA: GA TISSUE REMOVED OR ALTERED: Fallopian tubes COMPLICATIONS: None ESTIMATED BLOOD LOSS: Minimal INTRAOPERATIVE FINDINGS: Normal female pelvis PROCEDURE: Patient was taken to the OR placed in supine position. General anesthesia was induced. She was placed in dorsolithotomy position using Neo stirrups. Her perineum vagina and abdomen were prepared and draped in a sterile fashion. Incision was made at the umbilicus and the natural umbilical defect was identified. This was enlarged at the fascial level with curved Bates scissors. A blunt port was then placed. Laparoscopy confirmed appropriate placement. The uterus was elevated out of the pelvis using the sponge stick in the vagina. Each fallopian tube was identified and followed out to its fimbriated end and then cauterized at the mid isthmic portion with 5 successive bites moving back toward the uterine cornu. At the end of the case the gas was allowed to escape from the abdomen. The port and scope were removed in unison. The fascia at the umbilicus was closed with a 2-0 Vicryl stitch and skin closed with 4-0 undyed Vicryl stitch. The wound was dressed all instruments removed from the vagina. She is extubated in the OR and taken to recovery room in stable condition.
[2016-11-05] MEDS: FENTANYL CITRATE INJ/PF 100 MCG/2 ML AMPUL ONE ×2 (11:52→12:03)
[2016-11-05] MEDS ORDERED: RINGERS SOLUTION,LACTATED 1,000 ML IV PRN (11:52)
[2016-11-05] MEDS ORDERED: SUCCINYLCHOLINE CHLORIDE INJ 200 MG/10 ML VIAL ONE (12:00)
[2016-11-05] MEDS ORDERED: KETOROLAC TROMETHAMINE 60 MG/2 ML SDV ONE (12:00)
[2016-11-05] MEDS ORDERED: IBUPROFEN 800 MG TABLET PO PRN (12:15)
[2016-11-05] MEDS ORDERED: KETOROLAC TROMETHAMINE INJ/PF 30 MG/1 ML SDV IV PRN (12:15)
[2016-11-05] MEDS ORDERED: ONDANSETRON 4 MG TAB.RAPDIS ONE (13:53)
[2016-11-05] MEDS ORDERED: ONDANSETRON 4 MG TAB.RAPDIS PO ONE (14:15)
[2016-11-05] MEDS ORDERED: ONDANSETRON HCL INJ/PF 4 MG/2 ML SDV IV ONE (14:30)
[2016-11-05 14:36] VITALS: BP 112/64
== END 2016-11-05 14:15 | disposition home or self-care (01) ==
LOC: OROUT 08:43
PROVIDERS: ATTEND Obstetrics & Gynecology
PROC: 0U574ZZ Destruction of Bilateral Fallopian Tubes, Percutaneous Endoscopic Approach (ICD-10-PCS; principal; 2016-11-05 10:45)
DX: Z30.2 Encounter for sterilization (principal); D64.9 Anemia, unspecified; Z79.899 Other long term (current) drug therapy; Z88.8 Allergy status to other drugs, medicaments and biological substances
CPT/HCPCS: 36415; 85027; 81025; 81001; 58670; J2250; J1100; J1885; S0119; J3010; J0330; J2405; J2704; J3490; J0131; 851

== ENCOUNTER 2017-03-16 13:12 | Emergency (ER) | payer SELFPAY ==
[2017-03-16] MEDS ORDERED: DICYCLOMINE HCL 20 MG TABLET PO ONE (14:30)
[2017-03-16] MEDS ORDERED: METOCLOPRAMIDE HCL 10 MG TABLET PO ONE (14:30)
--- NOTE | 2017-03-16 14:55 | ER Document Report ---
ED General - General Chief Complaint: Flu Symptoms Stated Complaint: VOMITING Time Seen by Provider: 03/16/17 14:12 Mode of Arrival: Ambulatory Information source: Patient Notes: 26-year-old female presents with complaints of nausea vomiting diarrhea started today. Patient notes she vomited and then felt pain in her back to be anterior chest since then resolved patient admits to mild cough TRAVEL OUTSIDE OF THE [place] IN LAST 30 DAYS: No - HPI Onset: Just prior to arrival Onset/Duration: Sudden Quality of pain: Cramping Severity: Mild Pain Level: 1 Associated symptoms: Nonproductive cough, Diarrhea, Nausea, Vomiting Exacerbated by: Denies Relieved by: Denies Similar symptoms previously: No Recently seen / treated by doctor: No - Related Data Allergies/Adverse Reactions: brompheniramine maleate [From Dimetapp] Allergy (Verified 03/16/17 13:16) swelling, rash dextromethorphan HBr [From Dimetapp] Allergy (Verified 03/16/17 13:16) swelling, rash guaifenesin [From Robitussin A-C] Allergy (Verified 03/16/17 13:16) swelling, rash phenylpropanolamine HCl [From Dimetapp] Allergy (Verified 03/16/17 13:16) swelling, rash pseudoephedrine HCl [From Dimetapp] Allergy (Verified 03/16/17 13:16) swelling, rash Past Medical History - Social History Smoking Status: Never Smoker Cigarette use (# per day): No Chew tobacco use (# tins/day): No Smoking Education Provided: No Frequency of alcohol use: None Drug Abuse: None Family History: Arthritis, CAD, CVA, DM, Hyperlipidemia, Hypertension Patient has suicidal ideation: No Patient has homicidal ideation: No - Past Medical History Cardiac Medical History: Denies: Hx Coronary Artery Disease, Hx Heart Attack, Hx Hypertension Pulmonary Medical History: Reports: Hx Asthma - Childhood Denies: Hx Bronchitis, Hx COPD, Hx Pneumonia Neurological Medical History: Denies: Hx Cerebrovascular Accident, Hx Seizures Renal/ Medical History: Denies: Hx Peritoneal Dialysis Musculoskeltal Medical History: Denies Hx Arthritis Psychiatric Medical History: Reports: Hx Depression Past Surgical History: Reports: Hx Oral Surgery - [place] teeth removal, Hx Tubal Ligation - Immunizations Immunizations up to date: Yes Hx Diphtheria, Pertussis, Tetanus Vaccination: Yes Review of Systems - Review of Systems Notes: REVIEW OF SYSTEMS: CONSTITUTIONAL : Denies fever, chills, or sweats. Denies recent illness. EENT: Denies eye, ear, throat, or mouth pain or symptoms. Denies nasal or sinus congestion or discharge. Denies throat, tongue, or mouth swelling or difficulty swallowing. CARDIOVASCULAR: Denies chest pain. Denies palpitations or racing or irregular heart beat. Denies ankle edema. RESPIRATORY: Denies cough, cold, or chest congestion. Denies shortness of breath, difficulty breathing, or wheezing. GASTROINTESTINAL: Admits to nausea vomiting diarrhea GENITOURINARY: Denies difficulty urinating, painful urination, burning, frequency, blood in urine, or discharge. FEMALE GENITOURINARY: Denies vaginal bleeding, heavy or abnormal periods, irregular periods. Denies vaginal discharge or odor. MUSCULOSKELETAL: Denies back or neck pain or stiffness. Denies joint pain or swelling. SKIN: Denies rash, lesions or sores. HEMATOLOGIC : Denies easy bruising or bleeding. LYMPHATIC: Denies swollen, enlarged glands. NEUROLOGICAL: Denies confusion or altered mental status. Denies passing out or loss of consciousness. Denies dizziness or lightheadedness. Denies headache. Denies weakness or paralysis or loss of use of either side. Denies problems with gait or speech. Denies sensory loss, numbness, or tingling. Denies seizures. PSYCHIATRIC: Denies anxiety or stress. Denies depression, suicidal ideation, or homicidal ideation. ALL OTHER SYSTEMS REVIEWED AND NEGATIVE. PHYSICAL EXAMINATION: GENERAL: Well-appearing, well-nourished and in no acute distress. HEAD: Atraumatic, normocephalic. EYES: Pupils equal round and reactive to light, extraocular movements intact, conjunctiva are normal. ENT: Nares patent, oropharynx clear without exudates. Moist mucous membranes. NECK: Normal range of motion, supple without lymphadenopathy LUNGS: Breath sounds clear to auscultation bilaterally and equal. No wheezes rales or rhonchi. HEART: Regular rate and rhythm without murmurs ABDOMEN: Soft, nontender, nondistended abdomen. No guarding, no rebound. No masses appreciated. Female : deferred Musculoskeletal: Normal range of motion, no pitting or edema. No cyanosis. NEUROLOGICAL: Cranial nerves grossly intact. Normal speech, normal gait. Normal sensory, motor exams PSYCH: Normal mood, normal affect. SKIN: Warm, Dry, normal turgor, no rashes or lesions noted. Dictation was performed using Circular voice recognition software Physical Exam - Vital signs Vitals: Temp Pulse Resp BP Pulse Ox 98.4 F 94 16 148/79 H 100 03/16/17 13:24 03/16/17 13:24 03/16/17 13:24 03/16/17 13:24 03/16/17 13:24 Course - Re-evaluation Re-evalutation: 03/16/17 14:56 Patient overall looks quite well influenza is pending she is in no distress vital signs are stable 03/16/17 16:07 Patient's influenza was negative, she was given nausea control notes her nausea is improved. She will be discharged with extremely close follow-up given that there is no specific point tenderness I have very low suspicion for any intra- abdominal source of infectious process, I believe this is a viral gastroenteritis After performing a Medical Screening Examination, I estimate there is LOW risk for ACUTE APPENDICITIS, BOWEL OBSTRUCTION, ACUTE CHOLECYSTITIS, PERFORATED DIVERTICULITIS, INCARCERATED HERNIA, PANCREATITIS, PELVIC INFLAMMATORY DISEASE, PERFORATED ULCER, ECTOPIC , or TUBO-OVARIAN ABSCESS, thus I consider the discharge disposition reasonable. Also, there is no evidence or peritonitis , sepsis, or toxicity. I have reevaluated this patient multiple times and no significant life threatening changes are noted. The patient and I have discussed the diagnosis and risks, and we agree with discharging home with close follow-up with the understanding that symptoms and presentations can change. We also discussed returning to the Emergency Department immediately if new or worsening symptoms occur. We have discussed the symptoms which are most concerning (e.g., bloody stool, fever, changing or worsening pain, vomiting) that necessitate immediate return. - Vital Signs Vital signs: Temp Pulse Resp BP Pulse Ox 98.2 F 85 20 129/92 H 100 03/16/17 15:42 03/16/17 15:42 03/16/17 15:42 03/16/17 15:42 03/16/17 15:42 Discharge - Discharge Clinical Impression: Nausea vomiting and diarrhea Condition: Stable Disposition: HOME, SELF-CARE Instructions: Diarrhea, Nonspecific ([facility]), Vomiting ([facility]) Additional Instructions: Follow up with your physician tomorrow for further care or return to the ED IMMEDIATELY if symptoms worsen or new concerns occur. If you cannot afford to follow up with your primary care physician a list of low cost clinics have been provided at the end of your discharge papers as well. Prescriptions: Metoclopramide HCl [Reglan 10 mg Tablet] 1 - 2 tab PO Q6 #25 tablet
[2017-03-16 15:44] VITALS: BP 129/92
--- NOTE | 2017-03-16 20:31 | EKG REPORT ---
SEVERITY:- ABNORMAL ECG - SINUS RHYTHM NONSPECIFIC INTRAVENTRICULAR CONDUCTION DELAY : Confirmed by: Sumaya Kraft MD 16-Mar-2017 20:30:34
== END 2017-03-16 15:43 | disposition home or self-care (01) ==
LOC: ER 13:12
DX: R11.2 Nausea with vomiting, unspecified (principal); R19.7 Diarrhea, unspecified
CPT/HCPCS: 93005; 99284; 87804; 93010; J3490

== ENCOUNTER 2018-08-22 19:07 | Emergency (ER) | payer BC, MEDICAID ==
[2018-08-22] MEDS ORDERED: ONDANSETRON HCL INJ/PF 4 MG/2 ML SDV IV ONE (19:39)
[2018-08-22] MEDS ORDERED: KETOROLAC TROMETHAMINE INJ/PF 30 MG/1 ML SDV IV ONE (19:39)
--- NOTE | 2018-08-22 19:41 | ER Document Report ---
ED Medical Screen (RME) - General Chief Complaint: Abdominal Pain Stated Complaint: STOMACH PAINS Time Seen by Provider: 08/22/18 19:38 Mode of Arrival: Ambulatory Information source: Patient Notes: Patient presents the emergency department with complaints of right upper quad abdominal pain radiating to her back for the past 2 hours. Reports she had burger fries pretzels today. Still has her gallbladder. Denies fever or diarrhea. Reports vomiting for the past 2 hours. I have greeted and performed a rapid initial assessment of this patient. A comprehensive ED assessment and evaluation of the patient, analysis of test results and completion of the medical decision making process will be conducted by additional ED providers. Dictation of this chart was performed using voice recognition software; therefore, there may be some unintended grammatical errors. TRAVEL OUTSIDE OF THE [place] IN LAST 30 DAYS: No - Related Data Allergies/Adverse Reactions: brompheniramine maleate [From Dimetapp] Allergy (Verified 08/22/18 19:08) swelling, rash dextromethorphan HBr [From Dimetapp] Allergy (Verified 08/22/18 19:08) swelling, rash guaifenesin [From Robitussin A-C] Allergy (Verified 08/22/18 19:08) swelling, rash phenylpropanolamine HCl [From Dimetapp] Allergy (Verified 08/22/18 19:08) swelling, rash pseudoephedrine HCl [From Dimetapp] Allergy (Verified 08/22/18 19:08) swelling, rash Past Medical History - Past Medical History Cardiac Medical History: Denies: Hx Coronary Artery Disease, Hx Heart Attack, Hx Hypertension Pulmonary Medical History: Reports: Hx Asthma - Childhood Denies: Hx Bronchitis, Hx COPD, Hx Pneumonia Neurological Medical History: Denies: Hx Cerebrovascular Accident, Hx Seizures Renal/ Medical History: Denies: Hx Peritoneal Dialysis Musculoskeltal Medical History: Denies Hx Arthritis Psychiatric Medical History: Reports: Hx Depression Past Surgical History: Reports: Hx Oral Surgery - [place] teeth removal, Hx Tubal Ligation - Immunizations Immunizations up to date: Yes Hx Diphtheria, Pertussis, Tetanus Vaccination: Yes Physical Exam - Vital signs Vitals: Temp Pulse Resp BP Pulse Ox 98.2 F 86 20 166/98 H 100 08/22/18 19:12 08/22/18 19:12 08/22/18 19:12 08/22/18 19:12 08/22/18 19:12 Course - Vital Signs Vital signs: Temp Pulse Resp BP Pulse Ox 98.2 F 86 20 166/98 H 100 08/22/18 19:12 08/22/18 19:12 08/22/18 19:12 08/22/18 19:12 08/22/18 19:12
--- NOTE | 2018-08-22 20:39 | RADIOLOGY REPORT (SQ) ---
EXAM DESCRIPTION: US ABDOMEN LIMITED COMPLETED DATE/TME: 08/22/2018 19:39 CLINICAL HISTORY: 28 years, Female, ruq abd pain COMPARISON: None. TECHNIQUE: 2-D grayscale images of the abdomen were obtained. Doppler was also utilized. LIMITATIONS: None. FINDINGS: Visualized portions of the pancreas appear normal in echogenicity. Visualized portions of the abdominal aorta appear normal, with measurements as follows: Proximal abdominal aorta: 1.6 cm Mid abdominal aorta: 1.8 cm Distal abdominal aorta: 1.5 cm The liver appears overall normal in echogenicity. No focal liver lesions are appreciated. It does appear enlarged, measuring 18.5 cm in length. Antegrade flow is documented within the main portal vein. Right kidney measures 11.3 x 4.9 x 5.1 cm in size. No hydronephrosis. Gallbladder wall thickness measures 2 mm. Sonographic Pillai sign was negative. Foci of comet tail artifact are noted throughout the gallbladder wall. There is no pericholecystic free fluid. Common bile duct diameter measures 7 mm. IMPRESSION: No acute sonographic abnormality within the right upper quadrant. Suspect gallbladder adenomyomatosis. Hepatomegaly. copyright 2010 [employer]- All Rights Reserved
[2018-08-22 20:44] LABS: ABSOLUTE EOSINOPHILS # (AUTO) 0.1 10^3/uL (0.0-0.6); EOSINOPHILS % (AUTO) 0.8 % (0-6); LYMPHOCYTES % (AUTO) 23.8 % (13-45); MEAN CORPUSCULAR HGB CONC 33.8 g/dL (32.0-36.0); MEAN CORPUSCULAR VOLUME 85 fl (80-97); TOTAL CELLS COUNTED % (AUTO) 100 %
[2018-08-22 20:50] LABS: ABSOLUTE LYMPHOCYTES (AUTO) 2.9 10^3/uL (0.5-4.7); ABSOLUTE MONOCYTES (AUTO) 0.7 10^3/uL (0.1-1.4); ABSOLUTE NEUT (AUTO) 8.3 10^3/uL (1.7-8.2); BASOPHILS % (AUTO) 0.3 % (0-2); HEMATOCRIT 41.8 % (36.0-47.0); HEMOGLOBIN 14.1 g/dL (12.0-15.5); MEAN CORPUSCULAR HEMOGLOBIN 28.7 pg (27.0-33.4); PLATELET COUNT 342 10^3/uL (150-450); RED BLOOD COUNT 4.91 10^6/uL (3.72-5.28); RED CELL DISTRIBUTION WIDTH 14.4 % (11.5-14.0); SEGMENTED NEUTROPHILS % (AUTO) 69.1 % (42-78); WHITE BLOOD COUNT 12.1 10^3/uL (4.0-10.5)
[2018-08-22 20:52] LABS: ALANINE AMINOTRANSFERASE 35 U/L (9-52); ALBUMIN 4.6 g/dL (3.5-5.0); ALKALINE PHOSPHATASE 85 U/L (38-126); ANION GAP 13 (5-19); ASPARTATE AMINO TRANSFERASE 27 U/L (14-36); BILIRUBIN,DIRECT 0.3 mg/dL (0.0-0.4); BILIRUBIN,TOTAL 0.4 mg/dL (0.2-1.3); BLOOD UREA NITROGEN 13 mg/dL (7-20); CALCIUM 10.1 mg/dL (8.4-10.2); CARBON DIOXIDE 26 mmol/L (22-30); CHLORIDE 104 mmol/L (98-107); GLUCOSE 95 mg/dL (75-110); LIPASE 178.4 U/L (23-300); POTASSIUM 3.9 mmol/L (3.6-5.0); SODIUM 142.7 mmol/L (137-145); TOTAL PROTEIN 8.2 g/dL (6.3-8.2)
[2018-08-22 21:48] LABS: AMORPHOUS SEDIMENT,URINE 1+ /HPF; APPEARANCE,URINE TURBID; BILIRUBIN,URINE SMALL (NEGATIVE); COLOR,URINE YELLOW; GLUCOSE, URINE NEGATIVE (NEGATIVE); KETONES,URINE TRACE mg/dL (NEGATIVE); LEUKOCYTE ESTERASE,URINE NEGATIVE (NEGATIVE); NITRITE,URINE NEGATIVE (NEGATIVE); PROTEIN,URINE 30 mg/dL (NEGATIVE); URINE SPECIFIC GRAVITY 1.039
--- NOTE | 2018-08-22 22:38 | ER Document Report ---
ED General - General Chief Complaint: Abdominal Pain Stated Complaint: STOMACH PAINS Time Seen by Provider: 08/22/18 19:38 Mode of Arrival: Ambulatory TRAVEL OUTSIDE OF THE [place] IN LAST 30 DAYS: No - HPI Notes: Patient is a 28-year-old female that presents to the emergency department for chief complaint of upper quadrant abdominal pain. Patient reports at 4 PM she ate a heavy meal and at 430 she had acute onset of a sharp pain in the right upper quadrant that radiated into her right shoulder blade. The pain was constant until receiving Toradol in the emergency room. She reports having one episode of emesis after onset of pain. She denied any fevers, chills, shortness of breath and chest pain. Patient denies history of biliary disease in the past. She currently states she is feeling much better. Past Medical History: Negative Past Surgical History: Tubal ligation, wisdom teeth Social History: Occasional alcohol, occasional marijuana, denies tobacco use Family History: Reviewed and noncontributory for presenting illness Allergies: Reviewed, see documented allergy list. REVIEW OF SYSTEMS: CONSTITUTIONAL : No fever No chills No diaphoresis No recent illness EENT: No vision changes No congestion No sore throat CARDIOVASCULAR: No chest pain No palpitations RESPIRATORY: No shortness of breath No cough No difficulty breathing GASTROINTESTINAL: abdominal pain nausea vomiting No diarrhea GENITOURINARY: No dysuria No hematuria No difficulty urinating MUSCULOSKELETAL: back pain No leg pain No arm pain SKIN: No rashes No lesions LYMPHATIC: No swollen, enlarged glands. NEUROLOGICAL: No lightheadedness No headache No weakness No paresthesias PSYCHIATRIC: No anxiety No depression PHYSICAL EXAMINATION: Vital signs reviewed, nursing noted reviewed. GENERAL: Well-appearing, well-nourished and in no acute distress. HEAD: Atraumatic, normocephalic. EYES: Eyes appear normal, extraocular movements intact, sclera anicteric, conjunctiva are normal. ENT: nares patent, oropharynx clear without exudates. Moist mucous membranes. NECK: Normal range of motion, supple without lymphadenopathy LUNGS: Breath sounds clear to auscultation bilaterally and equal. No wheezes rales or rhonchi. HEART: Regular rate and rhythm without murmurs ABDOMEN: Soft, mild right upper quadrant tenderness, negative Pillai sign, normoactive bowel sounds. No rebound, guarding, or rigidity. No masses appreciated. Back: No midline thoracic or lumbar tenderness, no CVA tenderness bilaterally, no paraspinal muscle tenderness or spasm EXTREMITIES: Nontender, good range of motion, no pitting or edema. NEUROLOGICAL: No focal neurological deficits. Moves all extremities spontaneously Motor and sensory grossly intact on exam. PSYCH: Normal mood, normal affect. SKIN: Warm, Dry, normal turgor, no rashes or lesions noted on exposed skin - Related Data Allergies/Adverse Reactions: brompheniramine maleate [From Dimetapp] Allergy (Verified 08/22/18 19:08) swelling, rash dextromethorphan HBr [From Dimetapp] Allergy (Verified 08/22/18 19:08) swelling, rash guaifenesin [From Robitussin A-C] Allergy (Verified 08/22/18 19:08) swelling, rash phenylpropanolamine HCl [From Dimetapp] Allergy (Verified 08/22/18 19:08) swelling, rash pseudoephedrine HCl [From Dimetapp] Allergy (Verified 08/22/18 19:08) swelling, rash Past Medical History - General Information source: Patient - Social History Smoking Status: Never Smoker Frequency of alcohol use: Occasional Drug Abuse: None Family History: Arthritis, CAD, CVA, DM, Hyperlipidemia, Hypertension Patient has suicidal ideation: No Patient has homicidal ideation: No - Past Medical History Cardiac Medical History: Denies: Hx Coronary Artery Disease, Hx Heart Attack, Hx Hypertension Pulmonary Medical History: Reports: Hx Asthma - Childhood Denies: Hx Bronchitis, Hx COPD, Hx Pneumonia Neurological Medical History: Denies: Hx Cerebrovascular Accident, Hx Seizures Renal/ Medical History: Denies: Hx Peritoneal Dialysis Musculoskeletal Medical History: Denies Hx Arthritis Psychiatric Medical History: Reports: Hx Depression Past Surgical History: Reports: Hx Oral Surgery - [place] teeth removal, Hx Tubal Ligation - Immunizations Immunizations up to date: Yes Hx Diphtheria, Pertussis, Tetanus Vaccination: Yes Physical Exam - Vital signs Vitals: Temp Pulse Resp BP Pulse Ox 98.2 F 86 20 166/98 H 100 08/22/18 19:12 08/22/18 19:12 08/22/18 19:12 08/22/18 19:12 08/22/18 19:12 Course - Re-evaluation Re-evalutation: 08/22/18 22:37 Vitals reviewed. Nursing notes reviewed. Patient is well-appearing and in no acute distress. Her ultrasound shows no acute cholecystitis. Patient's blood work is unremarkable. There is no urinary tract infection. She currently feels much better than when she presented to the ER. Her pain in the right upper quadrant radiating to her right shoulder blade is consistent with biliary colic. I did reimbursement counselor her on dietary changes. Patient will be referred to general surgery for follow-up. She was also counseled on return precautions and verbalized understanding. She is stable for discharge. Laboratory 08/22/18 08/22/18 08/22/18 19:52 19:52 21:10 WBC 12.1 H RBC 4.91 Hgb 14.1 Hct 41.8 MCV 85 MCH 28.7 MCHC 33.8 RDW 14.4 H Plt Count 342 Seg Neutrophils % 69.1 Lymphocytes % 23.8 Monocytes % 6.0 Eosinophils % 0.8 Basophils % 0.3 Absolute Neutrophils 8.3 H Absolute Lymphocytes 2.9 Absolute Monocytes 0.7 Absolute Eosinophils 0.1 Absolute Basophils 0.0 Sodium 142.7 Potassium 3.9 Chloride 104 Carbon Dioxide 26 Anion Gap 13 BUN 13 Creatinine 0.82 Est GFR ( Amer) > 60 Est GFR (Non-Af Amer) > 60 Glucose 95 Calcium 10.1 Total Bilirubin 0.4 Direct Bilirubin 0.3 Neonat Total Bilirubin Not Reportable Neonat Direct Bilirubin Not Reportable Neonat Indirect Bili Not Reportable AST 27 ALT 35 Alkaline Phosphatase 85 Total Protein 8.2 Albumin 4.6 Lipase 178.4 Urine Color YELLOW Urine Appearance TURBID Urine pH 5.0 Ur Specific [place] 1.039 Urine Protein 30 H Urine Glucose (UA) NEGATIVE Urine Ketones TRACE H Urine Blood NEGATIVE Urine Nitrite NEGATIVE Urine Bilirubin SMALL H Urine Urobilinogen 4.0 H Ur Leukocyte Esterase NEGATIVE Urine RBC (Auto) 6 Squamous Epi Cells Auto 4 Amorphous Sediment Auto 1+ Urine Mucus (Auto) MANY Urine Ascorbic Acid NEGATIVE Urine HCG, Qual NEGATIVE Abdomen Ultrasound 08/22/18 19:39 IMPRESSION: No acute sonographic abnormality within the right upper quadrant. Suspect gallbladder adenomyomatosis. Hepatomegaly. copyright 2011 [employer]- All Rights Reserved - Vital Signs Vital signs: Temp Pulse Resp BP Pulse Ox 98.2 F 86 20 166/98 H 100 08/22/18 19:12 08/22/18 19:12 08/22/18 19:12 08/22/18 19:12 08/22/18 19:12 - Laboratory Result Diagrams: 08/22/18 19:52 08/22/18 19:52 Laboratory results interpreted by me: 08/22/18 08/22/18 19:52 21:10 WBC 12.1 H RDW 14.4 H Absolute Neutrophils 8.3 H Urine Protein 30 H Urine Ketones TRACE H Urine Bilirubin SMALL H Urine Urobilinogen 4.0 H Discharge - Discharge Clinical Impression: Biliary colic Condition: Stable Disposition: HOME, SELF-CARE Instructions: Gallbladder Disease ([facility]) Additional Instructions: Please return to the emergency department if you have any worsening, or concern of your symptoms. Please return to the emergency department if you develop chest pain, difficulty breathing, severe abdominal pain, or ongoing vomiting. Please follow-up with your primary care physician in 2-3 days and any other recommended physicians. If prescribed, take all medications as directed. If you have any questions or concerns do not hesitate to return the emergency department for evaluation. [] Prescriptions: Ondansetron [Zofran Odt 4 mg Tablet] 1 tab PO Q4H PRN #15 tab.rapdis PRN Reason: For Nausea/Vomiting Referrals: MARKEL HILL MD [ACTIVE STAFF] - Follow up in 3-5 days
[2018-08-22 22:58] VITALS: BP 121/70
== END 2018-08-22 22:58 | disposition home or self-care (01) ==
LOC: ER 19:07
DX: K80.50 Calculus of bile duct without cholangitis or cholecystitis without obstruction (principal); R16.0 Hepatomegaly, not elsewhere classified; R10.11 Right upper quadrant pain; R11.2 Nausea with vomiting, unspecified; M54.9 Dorsalgia, unspecified; Z98.51 Tubal ligation status; Z88.8 Allergy status to other drugs, medicaments and biological substances
CPT/HCPCS: 99284; 96374; 96375; 36415; 83690; 85025; 81025; 80053; 81001; 76705; J1885; J2405

== ENCOUNTER 2018-10-05 06:51 | Day surgery (SDC) | payer BC, OTHER ==
[2018-09-28 09:31] LABS: HEMATOCRIT 39.7 % (36.0-47.0); HEMOGLOBIN 13.4 g/dL (12.0-15.5); MEAN CORPUSCULAR HEMOGLOBIN 28.7 pg (27.0-33.4); MEAN CORPUSCULAR HGB CONC 33.7 g/dL (32.0-36.0); MEAN CORPUSCULAR VOLUME 85 fl (80-97); PLATELET COUNT 268 10^3/uL (150-450); RED BLOOD COUNT 4.67 10^6/uL (3.72-5.28); RED CELL DISTRIBUTION WIDTH 13.5 % (11.5-14.0); WHITE BLOOD COUNT 7.1 10^3/uL (4.0-10.5)
[2018-09-28 09:59] LABS: ANION GAP 9 (5-19); BLOOD UREA NITROGEN 19 mg/dL (7-20); CALCIUM 9.5 mg/dL (8.4-10.2); CARBON DIOXIDE 24 mmol/L (22-30); CHLORIDE 107 mmol/L (98-107); GLUCOSE 82 mg/dL (75-110); POTASSIUM 4.5 mmol/L (3.6-5.0); SODIUM 139.9 mmol/L (137-145)
[~2018-10-05 06:51] MED LIST changes: +ACETAMINOPHEN 325 MG TABLET PO PRN; +CEFAZOLIN 1 GM/D5W RTU 1 GM/50 ML RTUPB IV ONE; +CEFAZOLIN 1 GM/D5W RTU 1 GM/50 ML RTUPB IV PRN; +SCOPOLAMINE HYDROBROMIDE 1.5 MG PATCH.TD72 TD PRN
[2018-10-05] MEDS ORDERED: HYDROMORPHONE HCL INJ/PF 2 MG/ML AMPULE ONE (07:04)
[2018-10-05] MEDS ORDERED: FENTANYL CITRATE INJ/PF 250 MCG/5 ML AMPULE ONE (07:04)
[2018-10-05] MEDS ORDERED: ONDANSETRON HCL INJ/PF 4 MG/2 ML SDV ONE (07:04)
[2018-10-05] MEDS ORDERED: DEXAMETHASONE SOD PHOSPHATE INJ 4 MG/1 ML VIAL ONE (07:04)
[2018-10-05] MEDS ORDERED: PROPOFOL INJ 200 MG/20 ML VIAL IV ONE (07:04)
[2018-10-05] MEDS ORDERED: MIDAZOLAM 2 MG/2 ML INJ ONE (07:04)
[2018-10-05] MEDS ORDERED: KETOROLAC TROMETHAMINE 60 MG/2 ML SDV ONE (07:04)
[2018-10-05] MEDS ORDERED: SUGAMMADEX SODIUM 200 MG/2 ML SDV IV ONE (07:24)
[2018-10-05] MEDS ORDERED: SCOPOLAMINE HYDROBROMIDE 1.5 MG PATCH.TD72 ONE (08:25)
[2018-10-05] MEDS ORDERED: BUPIVACAINE HCL 0.25 % INJ/PF (2.5 MG/1 ML) 30 ML VIAL ONE (08:33)
[2018-10-05] MEDS ORDERED: CEFAZOLIN 1 GM/D5W RTU 1 GM/50 ML RTUPB IV ONE (08:54)
[2018-10-05] MEDS ORDERED: BUPIVACAINE HCL 0.25 % INJ/PF (2.5 MG/1 ML) 30 ML VIAL INJ ONE ×2 (09:17)
[2018-10-05] MEDS ORDERED: PROMETHAZINE HCL INJ 25 MG/1 ML VIAL IV PRN ×2 (09:30)
[2018-10-05] MEDS ORDERED: FENTANYL CITRATE INJ/PF 100 MCG/2 ML AMPUL IV PRN ×3 (09:30)
[2018-10-05] MEDS ORDERED: MEPERIDINE HCL/PF INJ 25 MG/1 ML DISP.SYRIN IV PRN (09:30)
--- NOTE | 2018-10-05 10:12 | Operative Report ---
Operative Report DATE OF SURGERY: 10/05/18 PREOPERATIVE DIAGNOSIS: Chronic cholecystitis with cholelithiasis POSTOPERATIVE DIAGNOSIS: same OPERATION: Laparoscopic cholecystectomy SURGEON: MARKEL CEJA [employer]QUIPMENT SALES ENGINEER: STANLEY URIAS ANESTHESIA: GA TISSUE REMOVED OR ALTERED: 1 gallbladder COMPLICATIONS: none ESTIMATED BLOOD LOSS: scant INTRAOPERATIVE FINDINGS: see below PROCEDURE: After obtaining informed consent, the patient was taken to the operating room. General Anesthesia was induced; the arms were extended, and the abdomen was exposed, and prepped and draped in a sterile fashion. Instrumentation was set up for laparoscopic cholecystectomy. Surgical plan and surgical timeout were conducted. A vertical incision was made above the umbilicus, and a verres needle was inserted uneventfully into the peritoneal cavity. Pneumoperitoneum was estab lished. The verres needle was removed and a 5 mm trocar was inserted and a 5 mm flexible laparoscope was inserted. Visualization of the peritoneal cavity confirmed safe uneventful entry. Under direct visualization 3 additional 5 mm ports were established, one in the subxiphoid position and second in the subcostal position. Visualization of the hepatobiliary anatomy revealed no anatomic variations. A grasper was placed on the fundus of the gallbladder and the gallbladder is elevated over the right surface of the liver; a second grasper was used to grasp the infundibulum of the gallbladder. There was aberrant vascular anatomy of the cystic artery coming off of the right hepatic artery to the lateral side of the gallbladder, specifically the infundibulum. The anatomy was dissected out clearly, and the cystic artery shown tapering onto the end of the gallbladder. Therefore it was surrounded with a right angle clamp, clipped twice proximally once distally, then divided with scissors. We are now able to open the triangle of Calot by dividing the peritoneal reflection on both the medial and lateral sides of the cystic duct infundibular junction. The critical view was obtained. Photos were taken; we now milked the cystic duct of any possible stones, clipped the cystic duct approximately 3 times once distally and divided with scissors. The gallbladder was now removed from the undersurface of the liver using hook cautery dissection. Graspers were repositioned and the gallbladder was removed uneventfully from the abdominal cavity through the super umbilical port site in cision. The specimen was examined, then passed off to pathology for permanent analysis. We returned to the peritoneal cavity check for bleeding, and evidence of bile leak, and there was none. We Confirmed satisfactory placement of clips on cystic duct and cystic artery were secured . At this point we felt the operation was complete. The subcutaneous tissue was then anesthetized with quarter percent Marcaine Sponge and needle counts are correct. All ports removed under direct visualization pneumoperitoneum evacuated, and 5 mm port wounds closed with 3-0 Vicryl suture, benzoin and Steri-Strips. The patient was extubated, and taken to the recovery room in stable condition. The physician insurance legal assistant, Ms. Peter, provided assistance during this case by: Assisting and port insertion, retracting tissue, instillation of local anesthesia and closure of skin incisions.
[2018-10-05] MEDS: HYDROMORPHONE HCL INJ/PF 2 MG/ML AMPULE ONE ×2 (10:19→10:33)
[2018-10-05] MEDS ORDERED: OXYCODONE-ACETAMINOPHEN 5-325 MG TABLET PO PRN (10:19)
--- NOTE | 2018-10-05 10:19 | Discharge Summary ---
Discharge Summary (SDC) - Discharge Final Diagnosis: Cholecystitis Date of Surgery: 10/05/18 Discharge Date: 10/05/18 Condition: Good Treatment or Instructions: [facility] [address] [place], [place] [address] Discharge Instructions: Laparoscopic Surgery 1. General Information: a. DO NOT DRIVE a car or operate dangerous machinery for 3-4 days or while taking narcotic pain pills. b. DO NOT consume alcohol, tranquilizers, sleeping medications or any non- prescribed medications for 24 hours unless approved by your doctor or as long as taking narcotic prescription medications. c. DO NOT make important decisions or sign any important papers for the first 24 hours after surgery. d. When discharged home the same day of surgery have a responsible person with you for the first night. 2. Activity Restrictions: 2 weeks . a. NO heavy lifting, straining abdominal muscles, bending over a lot, yard work, house work, or sports for [address] for 3-4 days . c. It is fine to go for walks, up and down steps, ride in a car. d. Elevate your head when sleeping/resting. 3. Treatment: a. You may shower 24 hours after surgery, no baths or swimming for 2 weeks. Remove band-aids or dressings before shower but leave paper strips (steri- strips) on the skin to fall off on their own. If still on at postoperative visit they will be removed then. b. Drainage of fluid or blood is not unusual from an incision. If occurs, you can clean with peroxide and cotton ball daily and cover with dry gauze until the wound seals. c. If a lot of bleeding occurs, you can hold pressure with a gauze or cloth over the site for 10 minutes and it will usually stop. If bleeding continues you will need to call for possible evaluation in office or emergency room. 4. Medications: a. _Toradol__ may be taken for pain as needed, one or two tablets every 4-6 hours. b. You should resume all normal medications unless a change is specified by your doctors. c 5. Diet: Begin with clear liquids and may progress to your normal diet if not nauseated. No high fat, high protein foods the day of surgery. 6. The following may occur after laparoscopic surgery: a. Shoulder or upper back ache from retained gas that should resolve in 1-2 days b. Soreness and bruising at incision sites will resolve with time. c. Scrotal swelling (labia in women) and bruising is often seen after hernia surgery. d. Sore throat e. Fatigue may last days to weeks. f. Difficulty urinating may occur and may need to come into emergency room for urinary catheter placement. 7. Notify Physician If: a. Worsening or pain not improved with pain medication b. Persistent nausea and vomiting c. Fever above 101 d. Persistent bleeding or swelling at operative site e. Unable to urinate and uncomfortable bladder 6-8 hours after surgery 8..Follow Up Care: a. Schedule a follow up appointment with your doctor for 2 weeks. In the event of any postoperative problems or questions or you may call the office during business hours or the On-Call physician evenings and weekends at [facility]. [facility] I understand the instructions for my postoperative care as described above and a copy has been given to me. Patient/Significant Other Witness Date Prescriptions: Ketorolac Tromethamine [Toradol 10 mg Tablet] 10 mg PO Q6HP PRN #20 tablet PRN Reason: Referrals: MARKEL BARBER MD [Primary Care Provider] - Discharge Diet: Other (Comments) - small bland portions then progress Discharge Activity: Balance Activity w/Rest, No Lifting Over 10 Pounds, No Lifting/Push/Pulling, Walk Frequently Report the Following to Your Physician Immediately: Nausea, Vomiting, Increase in Pain, Fever over 101 Degrees, Unusual Bleeding, Redness, Swelling, Warmth
[2018-10-05] MEDS ORDERED: PROMETHAZINE HCL INJ 25 MG/1 ML VIAL ONE (11:57)
[2018-10-05] MEDS ORDERED: SUCCINYLCHOLINE CHLORIDE INJ 200 MG/10 ML VIAL ONE (12:06)
[2018-10-05] MEDS ORDERED: ROCURONIUM BROMIDE INJ 50 MG/5 ML VIAL IV ONE (12:06)
[2018-10-05 13:05] VITALS: BP 118/67
== END 2018-10-05 12:25 | disposition home or self-care (01) ==
LOC: OROUT 06:51
PROVIDERS: ATTEND Surgery
DX: K81.1 Chronic cholecystitis (principal); E66.9 Obesity, unspecified
CPT/HCPCS: 36415; 85027; 81025; 80048; 88304 ×2; 00790; 47562; J2250; J0690; J3490 ×2; J1100; J1885; J3010; J1170; J2550; J0330; J2405; J2704; 790

== ENCOUNTER 2018-11-30 05:12 | Day surgery (SDC) | payer BC, OTHER ==
[2018-11-30] MEDS ORDERED: CEFAZOLIN INJ 1 GM VIAL ONE (05:49)
[2018-11-30 06:30] LABS: APPEARANCE,URINE CLEAR; BILIRUBIN,URINE NEGATIVE (NEGATIVE); COLOR,URINE YELLOW; GLUCOSE, URINE NEGATIVE (NEGATIVE); KETONES,URINE NEGATIVE (NEGATIVE); LEUKOCYTE ESTERASE,URINE NEGATIVE (NEGATIVE); NITRITE,URINE NEGATIVE (NEGATIVE); PROTEIN,URINE NEGATIVE (NEGATIVE); URINE SPECIFIC GRAVITY 1.027; UROBILINOGEN,URINE NEGATIVE mg/dL (<2.0)
[2018-11-30 07:07] LABS: ABSOLUTE EOSINOPHILS # (AUTO) 0.1 10^3/uL (0.0-0.6); ABSOLUTE LYMPHOCYTES (AUTO) 2.1 10^3/uL (0.5-4.7); ABSOLUTE MONOCYTES (AUTO) 0.5 10^3/uL (0.1-1.4); ABSOLUTE NEUT (AUTO) 3.8 10^3/uL (1.7-8.2); BASOPHILS % (AUTO) 0.5 % (0-2); EOSINOPHILS % (AUTO) 1.1 % (0-6); HEMATOCRIT 38.1 % (36.0-47.0); LYMPHOCYTES % (AUTO) 32.9 % (13-45); MEAN CORPUSCULAR HEMOGLOBIN 29.1 pg (27.0-33.4); MEAN CORPUSCULAR HGB CONC 34.3 g/dL (32.0-36.0); MEAN CORPUSCULAR VOLUME 85 fl (80-97); MONOCYTES % (AUTO) 7.4 % (3-13); PLATELET COUNT 251 10^3/uL (150-450); RED BLOOD COUNT 4.49 10^6/uL (3.72-5.28); RED CELL DISTRIBUTION WIDTH 13.4 % (11.5-14.0); SEGMENTED NEUTROPHILS % (AUTO) 58.1 % (42-78); TOTAL CELLS COUNTED % (AUTO) 100 %; WHITE BLOOD COUNT 6.5 10^3/uL (4.0-10.5)
[2018-11-30] MEDS ORDERED: HYDROMORPHONE HCL INJ/PF 2 MG/ML AMPULE ONE ×2 (07:16→09:44)
[2018-11-30] MEDS ORDERED: FENTANYL CITRATE INJ/PF 100 MCG/2 ML AMPUL ONE (07:16)
[2018-11-30] MEDS ORDERED: MIDAZOLAM 2 MG/2 ML INJ ONE (07:16)
[2018-11-30] MEDS ORDERED: PROPOFOL INJ 200 MG/20 ML VIAL IV ONE (07:17)
[2018-11-30 07:32] LABS: ANION GAP 11 (5-19); BLOOD UREA NITROGEN 16 mg/dL (7-20); CALCIUM 9.5 mg/dL (8.4-10.2); CARBON DIOXIDE 23 mmol/L (22-30); CHLORIDE 105 mmol/L (98-107); GLUCOSE 77 mg/dL (75-110); POTASSIUM 4.1 mmol/L (3.6-5.0)
[2018-11-30] MEDS ORDERED: PROMETHAZINE HCL INJ 25 MG/1 ML VIAL IV PRN ×2 (08:11)
[2018-11-30] MEDS ORDERED: FENTANYL CITRATE INJ/PF 100 MCG/2 ML AMPUL IV PRN ×3 (08:11)
[2018-11-30] MEDS ORDERED: MEPERIDINE HCL/PF INJ 25 MG/1 ML DISP.SYRIN IV PRN (08:11)
[2018-11-30] MEDS ORDERED: ONDANSETRON HCL INJ/PF 4 MG/2 ML SDV IV PRN (08:11)
[2018-11-30] MEDS ORDERED: OXYCODONE-ACETAMINOPHEN 5-325 MG TABLET PO PRN ×3 (08:11→11:29)
--- NOTE | 2018-11-30 09:43 | Operative Report ---
Operative Report DATE OF SURGERY: 11/30/18 PREOPERATIVE DIAGNOSIS: Menorrhagia cystocele rectocele pelvic organ prolapse POSTOPERATIVE DIAGNOSIS: Same OPERATION: [facility] A&P repair sacrospinous vaginal suspension SURGEON: DAVIDA MURO ANESTHESIA: GA TISSUE REMOVED OR ALTERED: Uterus and vaginal mucosa COMPLICATIONS: None ESTIMATED BLOOD LOSS: 300 cc PROCEDURE: Patient was placed in a dorsal lithotomy position prepped draped sterile fashion. Speculum was placed and cervix visualized and grasped with a Pierre thyroid clamp. Posterior cul-de-sac was entered with sharp dissection in the posterior parietal peritoneum was sutured to the posterior cuff with 2-0 Vicryl. The left uterosacral was clamped divided and suture with 2-0 Vicryl and repeated on the right. Cervix was sharply circumscribed and anterior parietoperitoneum was entered with sharp dissection. Serial clamps was used on each side of the uterus with the broad ligament being clamped divided and suture with 2-0 Vicryl. This continued to the level of the ovarian ligaments which were crossclamped and the uterus was then removed. He utero-ovarian ligament was then tied using 3 type II 0 Vicryl followed by suture tie of 2-0 Vicryl. Pedicles were inspected and hemostasis was noted. The cuff was then closed with interrupted sutures of 2-0 Vicryl. Again hemostasis was noted. The anterior repair was then accomplished by grasping the vaginal mucosa 2-1/2 cm below the urethra. The underlying vesicovaginal tissue was bluntly sharply divided. Tissue was then plicated in the midline using interrupted 2-0 Vicryl. Excess vaginal mucosa was then removed. The vaginal defect was then closed with a running stitch of 2-0 Vicryl. The posterior repair was then accompanied by grasping the vaginal mucosa the remnants of the hymenal ring. The vaginal tissue was then entered crosswise sharply. The midline was then entered with sharp dissection and divided and continued to just below the vaginal cuff. The underlying rectovaginal tissue was bluntly sharply divided. The right sacral spinous ligament was identified. Using the anchor sure the anchor was securely placed into the sacral spinous ligament. The free end of the suture was placed in the apex of the vaginal mucosa. The underlying rectovaginal tissue was then plicated in the midline. Multiple interrupted 2-0 Vicryl. Excess vaginal mucosa was then removed. Patient placed anchor sure was then plicated to the sacrospinous ligament. The vaginal defect was then closed with running suture of 2-0 Vicryl. Hemostasis was noted. The urine remained clear throughout the procedure and the procedure was then terminated.
[2018-11-30] MEDS ORDERED: ACETAMINOPHEN 1,000 MG/100 ML RTUPB IV ONE (09:44)
[2018-11-30] MEDS: PROMETHAZINE HCL INJ 25 MG/1 ML VIAL ONE ×2 (09:50→10:10)
[2018-11-30] MEDS ORDERED: MORPHINE SULFATE 10 MG/ML INJ IM PRN (11:31)
[2018-11-30] MEDS ORDERED: ONDANSETRON 4 MG TAB.RAPDIS PO PRN (11:32)
[2018-11-30] MEDS ORDERED: METOCLOPRAMIDE HCL INJ/PF 10 MG/2 ML SDV ONE (12:19)
[2018-11-30] MEDS ORDERED: ROCURONIUM BROMIDE INJ 50 MG/5 ML VIAL IV ONE (12:19)
[2018-11-30] MEDS ORDERED: GLYCOPYRROLATE 1 MG/5 ML VIAL ONE (12:19)
[2018-11-30] MEDS ORDERED: ONDANSETRON HCL INJ/PF 4 MG/2 ML SDV ONE (12:19)
[2018-11-30] MEDS ORDERED: NEOSTIGMINE METHYLSULFATE 10 MG/10 ML VIAL ONE (12:19)
[2018-11-30] MEDS ORDERED: LIDOCAINE 2% INJ-PF (20 MG/ML) 2 ML AMPUL ONE (12:19)
[2018-11-30] MEDS ORDERED: DEXAMETHASONE SOD PHOSPHATE INJ 4 MG/1 ML VIAL ONE (12:19)
[2018-11-30] MEDS ORDERED: KETOROLAC TROMETHAMINE 60 MG/2 ML SDV ONE (12:19)
[2018-11-30] MEDS ORDERED: IBUPROFEN 800 MG TABLET PO SCH (14:00)
[2018-11-30 16:22] VITALS: BP 126/81
== END 2018-11-30 17:05 | disposition home or self-care (01) ==
LOC: OROUT 05:12 → 2N 10:40 → OROUT 17:05
PROVIDERS: ATTEND Obstetrics & Gynecology Gynecology
DX: N81.9 Female genital prolapse, unspecified (principal); N92.0 Excessive and frequent menstruation with regular cycle; N81.6 Rectocele; D64.9 Anemia, unspecified; E66.9 Obesity, unspecified; Z68.38 Body mass index [BMI] 38.0-38.9, adult
CPT/HCPCS: 36415; 85025; 81025; 80048; 81001; 88305 ×2; 00944; 58260; 57260; 57282; J2250; J0690; J3490 ×3; J1100; J1885; J3010; J2765; J2710; J1170; J2550; J2405; J2704; J0131; 88307; 944